=== PATIENT | male | born 1960 | race Caucasian/White ===

== ENCOUNTER → 2017-12-27 11:05 | Outpatient (CLI) | payer BC, SELFPAY ==
--- NOTE | 2017-12-27 11:13 | XR_ITS ---
XR chest 2V HISTORY: ITS.REASON: CHRONIC COUGH ORDERING PHYSICIAN: CHRISTINA Patiño PATIENT AGE: 57 years COMPARISON: None FINDINGS: The cardiomediastinal silhouette and pulmonary vascularity are within normal limits. The lungs are clear without infiltrates, suspicious nodules, or pleural effusions. 5 mm nodules present in the right lung base with a granuloma. No acute bony abnormalities. IMPRESSION: Negative chest, no acute finding
== END ==
PROVIDERS: PCP Physician Assistant; Visit Provider Physician Assistant
DX: R05 Cough (principal)
CPT/HCPCS: 71046

== ENCOUNTER → 2018-03-18 15:14 | Outpatient (POV) | payer BC, SELFPAY | PROVIDERS: Visit Provider Dermatology | DX: Z00.00 Encounter for general adult medical examination without abnormal findings (principal) ==

== ENCOUNTER → 2018-10-25 07:41 | Outpatient (CLI) | payer BC, SELFPAY ==
[2018-10-25 07:53] LABS: Basophils % 0.4 % (0.1-2.0); Eosinophils # 0.1 K/mm3 (0.0-0.4); Eosinophils % 2.5 % (0.1-12.0); Hematocrit 37.5 % (42.0-52.0); Hemoglobin 12.2 g/dL (14.1-18.0); Lymphocytes # 1.1 K/mm3 (0.7-4.5); Lymphocytes % 23.1 % (10-50); Mean Corpuscular HGB Conc 32.5 g/dL (31.8-35.4); Mean Corpuscular Hemoglobin 27.1 pg (27.0-31.2); Mean Corpuscular Volume 83.3 fl (80-94); Mean Platelet Volume 8.4 fl (7.4-10.4); Monocytes # 0.4 K/mm3 (0.1-1.0); Monocytes % 8.1 % (1.7-9.3); Neutrophils # 3.2 K/mm3 (1.8-7.8); Neutrophils % 65.9 % (37.0-80.0); Platelet Count 169 K/mm3 (142-424); Red Cell Distribution Width 13.2 % (11.5-17.5); White Blood Count 4.8 K/mm3 (4.8-10.8)
[2018-10-25 08:14] LABS: Alanine Aminotransferase 42 U/L (12-78); Albumin Level 3.7 gm/dL (3.4-5.0); Albumin/Globulin Ratio 1.3 (1.1-1.8); Alkaline Phosphatase 70 U/L (46-116); Anion Gap 12.3 mEq/L (5-15); Aspartate Amino Transferase 16 U/L (15-37); Bilirubin,Total 0.5 mg/dL (0.2-1.0); Blood Urea Nitrogen 21 mg/dL (7-18); CKMB Relative Index 1.6 U/L (0-4.0); Calcium 8.5 mg/dL (8.5-10.1); Carbon Dioxide 29 mmol/L (21.0-32.0); Chloride 107 mmol/L (98-107); Chol/HDL Ratio 3.5 (1-3.5); Cholesterol 135 mg/dL (140-200); Creatine Kinase 161 U/L (39-308); Creatine Kinase MB 2.5 ng/ml (0.0-3.6); Creatinine,Serum 1.13 mg/dL (0.70-1.30); Estimated Glomerular Filt Rate 67 ml/min (>60); GFR (African American) 81 ML/MIN (>60); Globulin 2.9 gm/dl (1.3-3.2); Glucose 95 mg/dL (74-106); HDL Cholesterol 39 mg/dL (27-67); LDL Cholesterol 85 mg/dL (0-130); Potassium 4.3 mmoL/L (3.5-5.1); Sodium 144 mmol/L (136-145); Total Protein,Serum 6.6 gm/dL (6.4-8.2); Triglycerides 54 mg/dL (30-200); Troponin I < 0.02 ng/ml (0.00-0.06); VLDL Cholesterol 11 mg/dL (0-40)
[2018-10-27 03:15] LABS: Vitamin B12 1879 pg/mL (232-1245)
[2018-10-29 06:23] LABS: Vitamin D 25 Hydroxy 39.5 ng/mL (30.0-100.0)
== END ==
PROVIDERS: Visit Provider Physician Assistant
DX: R07.9 Chest pain, unspecified (principal); R53.83 Other fatigue; Z13.220 Encounter for screening for lipoid disorders
CPT/HCPCS: 36415; 80053; 80061; 82550; 82553; 82607; 82652; 84443; 84484; 85025

== ENCOUNTER → 2018-10-31 13:14 | Outpatient (CLI) | payer BC, SELFPAY ==
[2018-10-31 13:33] LABS: Basophils % 0.5 % (0.1-2.0); Eosinophils # 0.1 K/mm3 (0.0-0.4); Eosinophils % 1.1 % (0.1-12.0); Hematocrit 38.3 % (42.0-52.0); Lymphocytes # 0.9 K/mm3 (0.7-4.5); Lymphocytes % 16.4 % (10-50); Mean Corpuscular HGB Conc 31.4 g/dL (31.8-35.4); Mean Corpuscular Hemoglobin 26.5 pg (27.0-31.2); Mean Corpuscular Volume 84.5 fl (80-94); Mean Platelet Volume 7.7 fl (7.4-10.4); Monocytes # 0.4 K/mm3 (0.1-1.0); Monocytes % 6.3 % (1.7-9.3); Neutrophils # 4.3 K/mm3 (1.8-7.8); Neutrophils % 75.7 % (37.0-80.0); Platelet Count 206 K/mm3 (142-424); Red Blood Count 4.54 M/mm3 (4.60-6.20); Red Cell Distribution Width 13.3 % (11.5-17.5); Reticulocyte % (Auto) 2.1 % (0.9-3.2); White Blood Count 5.7 K/mm3 (4.8-10.8)
--- NOTE | 2018-10-31 14:16 | US_ITS ---
US extremity LT limited HISTORY: ITS.REASON: LT ARM MASS ORDERING PHYSICIAN: CHRISTINA Patiño PATIENT AGE: 58 years COMPARISON: None FINDINGS: There is a small oval area of decreased echogenicity in the subcutaneous region in the left posterior forearm corresponding to the palpable abnormality. This area demonstrates hypervascular blood flow and may be related to either an ectatic vessel or a hemangioma. No other significant anomalies evident. IMPRESSION: Palpable abnormality corresponds to an area of increased blood flow and may be due to an ectatic vessel or hemangioma
[2018-10-31 15:04] LABS: Ferritin 14 ng/mL (8-388)
[2018-11-01 08:30] LABS: Iron 44 ug/dL (38-169); Iron Saturation 12 % (15-55); UIBC 310 ug/dL (111-343)
[2018-11-02 21:40] LABS: Folate >20.0 ng/mL (>3.0)
== END ==
PROVIDERS: PCP Physician Assistant; Visit Provider Physician Assistant
DX: R07.9 Chest pain, unspecified (principal); R22.32 Localized swelling, mass and lump, left upper limb; D64.9 Anemia, unspecified
CPT/HCPCS: 36415; 76882; 82728; 82746; 83540; 83550; 85025; 85044; 93017

== ENCOUNTER → 2018-11-18 14:19 | Outpatient (POV) | payer BC, SELFPAY | PROVIDERS: Visit Provider Dermatology | DX: Z00.00 Encounter for general adult medical examination without abnormal findings (principal) ==

== ENCOUNTER → 2019-03-31 15:35 | Outpatient (POV) | payer BC, SELFPAY ==
--- NOTE | 2019-03-31 16:25 | XR_ITS ---
PROCEDURE: XR FOOT WT BEARING LT 3V CLINICAL INDICATION: pain Left foot pain COMPARISON: No exams were available for comparison FINDINGS: Moderate osteoarthritic changes are present at the 1st MTP joint with bony hypertrophy. Normal alignment. No fracture or dislocation. No lytic or blastic change Other findings:None. IMPRESSION: Osteoarthritis of the 1st MTP joint Dictated by: Elias Lawson MD 03/31/2019 17:24 Electronically signed by Elias Lawson MD in [facility] 03/31/2019 17:24
--- NOTE | 2019-03-31 16:25 | XR_ITS ---
PROCEDURE: XR FOOT WT BEARING RT 3V CLINICAL INDICATION: pain COMPARISON: No exams were available for comparison FINDINGS: No fracture or dislocation. No lytic or blastic change. There is normal mineralization. There are mild osteoarthritic changes of the 1st MTP joint, talonavicular joint, and calcaneocuboid joint. Normal alignment with no fracture or dislocation. Prominent spur noted at the distal 1st metatarsal Other findings:None. IMPRESSION: Osteoarthritic change Dictated by: Elias Lawson MD 03/31/2019 17:23 Electronically signed by Elias Lawson MD in [facility] 03/31/2019 17:23
== END ==
PROVIDERS: Referring Provider Podiatrist; Visit Provider Dermatology
DX: M79.672 Pain in left foot (principal); M79.671 Pain in right foot
CPT/HCPCS: 73630

== ENCOUNTER → 2020-02-09 16:10 | Outpatient (CLI) | payer BC, SELFPAY ==
--- NOTE | 2020-02-09 16:17 | XR_ITS ---
PROCEDURE: XR CLAVICLE RT CLINICAL INDICATION: CLAVICLE PAIN COMPARISON: No exams were available for comparison FINDINGS: No fracture or dislocation. No lytic or blastic change. There is normal mineralization. There are mild osteoarthritic changes at the acromioclavicular joint. No fracture or dislocation. Minimal osteoarthritis noted at the glenohumeral joint. Other findings:None. IMPRESSION: Mild degenerative changes otherwise negative Dictated by: Elias Lawson MD 02/09/2020 16:52 Elias Lawson MD in [facility] 02/09/2020 16:52
== END ==
PROVIDERS: PCP Physician Assistant; Visit Provider Nurse Practitioner Family
DX: M89.8X1 Other specified disorders of bone, shoulder (principal)
CPT/HCPCS: 73000

== ENCOUNTER → 2020-02-29 16:10 | Outpatient (CLI) | payer BC, SELFPAY ==
[2020-03-01 07:02] LABS: Adenovirus,PCR Not Detected (NotDetected); Bordetella Pertussis Not Detected (NotDetected); Chlamydophila Pneumoniae, PCR Not Detected (NotDetected); Coronavirus 19, PCR Not Detected (NotDetected); Coronavirus 229E Not Detected (NotDetected); Coronavirus NL63 Not Detected (NotDetected); Coronavirus OC43 Not Detected (NotDetected); Coronovirus HKU1,PCR Not Detected (NotDetected); Human Metapneumovirus Not Detected (NotDetected); Influenza A, PCR Not Detected (NotDetected); Influenza AH1, 2009 Not Detected (NotDetected); Influenza AH1, PCR Not Detected (NotDetected); Influenza AH3,PCR Not Detected (NotDetected); Influenza B, PCR Not Detected (NotDetected); Mycoplasma Pneumoniae, PCR Not Detected (NotDetected); Parainfluenza 1, PCR Not Detected (NotDetected); Parainfluenza 2, PCR Not Detected (NotDetected); Parainfluenza 3, PCR Not Detected (NotDetected); Parainfluenza 4, PCR Not Detected (NotDetected); Respiratory Syncytial Virus Not Detected (NotDetected); Rhinovirus/Enterovirus Not Detected (NotDetected)
== END ==
PROVIDERS: PCP Family Medicine; Visit Provider Family Medicine
DX: Z03.818 Encounter for observation for suspected exposure to other biological agents ruled out (principal)
CPT/HCPCS: 87581; 87633; 87798; U0003; U0004

== ENCOUNTER → 2020-04-05 13:26 | Outpatient (POV) | payer BC, SELFPAY | PROVIDERS: Visit Provider Dermatology | DX: Z00.00 Encounter for general adult medical examination without abnormal findings (principal) ==

== ENCOUNTER → 2020-11-11 16:42 | Outpatient (CLI) | payer BC, SELFPAY ==
--- NOTE | 2020-11-11 16:49 | XR_ITS ---
PROCEDURE INFORMATION: Exam: XR Right Femur Exam date and time: 11/11/2020 4:49 PM Age: 60 years old Clinical indication: Pain; Hip; Right; Patient HX: PT C/O a dull ache to the entire RT leg without injury or trauma. PT states md is looking for arthritis; Additional info: RT leg pain TECHNIQUE: Imaging protocol: XR Right femur. Views: 2 views. COMPARISON: No relevant prior studies available. FINDINGS: Bones/joints: No acute fracture. Mild widening of the medial aspect of the joint space. No acute fracture. Satisfactory alignment. Minimal degenerative changes with small acetabular marginal osteophytes Soft tissues: No acute findings or radiopaque foreign body. IMPRESSION: 1. No acute osseous findings. 2. Minimal degenerative changes in the hip joint. 3. Mild widening of the medial hip joint space. If there is continued clinical concern for hip pathology, follow-up MRI or CT may be helpful.
--- NOTE | 2020-11-11 16:49 | XR_ITS ---
PROCEDURE INFORMATION: Exam: XR Right Knee Exam date and time: 11/11/2020 4:49 PM Age: 60 years old Clinical indication: Pain; Knee; Right; Patient HX: PT C/O a dull ache to the entire RT leg without injury or trauma. PT states md is looking for arthritis; Additional info: RT leg pain TECHNIQUE: Imaging protocol: XR Right knee. Views: 3 views. COMPARISON: CR XR FOOT WT BEARING RT 3V 03/31/2019 4:36 PM FINDINGS: Bones/joints: Small marginal osteophytes of the medial and lateral joint compartment. No significant joint effusion. No acute fracture, dislocation or osseous destructive process. Soft tissues: No acute finding or radiopaque foreign body. IMPRESSION: 1. Mild degenerative changes in the medial and lateral joint compartments. 2. No acute osseous findings.
--- NOTE | 2020-11-11 16:49 | XR_ITS ---
PROCEDURE INFORMATION: Exam: XR Right Tibia and Fibula Exam date and time: 11/11/2020 4:49 PM Age: 60 years old Clinical indication: Pain; Hip; Right; Patient HX: PT C/O a dull ache to the entire RT leg without injury or trauma. PT states md is looking for arthritis; Additional info: RT leg pain TECHNIQUE: Imaging protocol: XR Right tibia and fibula. Views: 2 views. COMPARISON: CR XR FOOT WT BEARING RT 3V 03/31/2019 4:36 PM FINDINGS: Bones/joints: No acute fracture, dislocation or osseous destructive process. Soft tissues: No acute finding or radiopaque foreign body. IMPRESSION: No acute findings.
== END ==
PROVIDERS: PCP Physician Assistant; Visit Provider Physician Assistant
DX: M79.604 Pain in right leg (principal)
CPT/HCPCS: 73552; 73562; 73590

== ENCOUNTER → 2020-11-18 18:24 | Outpatient (CLI) | payer BC, SELFPAY ==
--- NOTE | 2020-11-18 18:33 | XR_ITS ---
PROCEDURE INFORMATION: Exam: XR Left Hip Exam date and time: 11/18/2020 6:33 PM Age: 60 years old Clinical indication: Hip pain; Left hip; Patient HX: PT C/O pain below lt hip joint TECHNIQUE: Imaging protocol: XR Left hip. Views: 2 or 3 views hip with pelvis when performed. COMPARISON: CR XR LUMBAR SPINE 2-3V 06/26/2019 7:39 PM FINDINGS: Bones/joints: There is no evidence of acute fracture. There is no evidence of joint malalignment or dislocation. Mild degenerative changes of the left hip. Soft tissues: There are no soft tissue masses or fluid collections. Gastrointestinal tract: A large amount of stool is noted throughout the colon. IMPRESSION: 1. No evidence of acute fracture. 2. No evidence of acute dislocation. 3. Mild degenerative changes of the left hip. 4. A large amount of stool is noted throughout the colon.
== END ==
PROVIDERS: PCP Physician Assistant; Visit Provider Physician Assistant
DX: M25.552 Pain in left hip (principal)
CPT/HCPCS: 73502

== ENCOUNTER → 2020-12-01 15:26 | Outpatient (CLI) | payer BC, SELFPAY ==
--- NOTE | 2020-12-01 15:40 | CT_ITS ---
PROCEDURE: CT HIP RT WO CON CLINICAL HISTORY: RIGHT HIP PAIN COMPARISON: No exams were available for comparison TECHNIQUE: Axial images obtained with sagittal and coronal reformats. All CT scans at the facility use one or more dose reduction, viz: automated exposure control, ma/kV adjustment per patient size (including targeted exams where dose is matched to indication, i.e. head), or iterative reconstruction technique. FINDINGS: No evidence of acute fractures. Minor degenerative changes of the right hip joint noted with the osteophyte formation and subchondral cystic changes. Bone density is normal. The visualized iliac bone is unremarkable. Focal sclerotic density abutting the medial cortex is noted measuring 0.8 x 0.8 centimeters in the intertrochanteric region of the right femur without evidence of cortical breach. There is possible minor adjacent periosteal reaction. Degenerative changes with fusion of the inferior aspect of the right sacroiliac joint. Visualized soft tissues of the pelvis are unremarkable. IMPRESSION: Focal sclerotic density is noted in the intertrochanteric region of the right femur without evidence of cortical breach. Possible minor periosteal reaction. This is incompletely evaluated on the current study. MRI of the proximal right femur/right hip joint without and with contrast is recommended for further evaluation. Dictated by: Ariadna Brennan 12/01/2020 16:26 Ariadna Brennan in [facility] 12/01/2020 16:26
== END ==
PROVIDERS: PCP Physician Assistant; Visit Provider Physician Assistant
DX: M25.551 Pain in right hip (principal)
CPT/HCPCS: 73700

== ENCOUNTER → 2020-12-09 13:22 | Outpatient (CLI) | payer BC, SELFPAY ==
[2020-12-09 13:42] LABS: Blood Urea Nitrogen 16 mg/dl (9-20)
[2020-12-09 13:43] LABS: Estimated Glomerular Filt Rate 76 ml/min (>60); GFR (African American) 93 ML/MIN (>60)
--- NOTE | 2020-12-09 13:53 | MR_ITS ---
PROCEDURE: MR HIP RT WO/W CON CLINICAL INDICATION: RIGHT HIP LESION COMPARISON: CR XR HIP LT 2-3V W/PELVIS from 11/18/[address] HIP RT WO CON from 12/01/2020 TECHNIQUE: Routine multiplanar multi echo sequences are performed without and with gadolinium enhancement. FINDINGS: Radiograph and CT shows a cortical area of sclerosis in the intertrochanteric region of the right femur. This area shows decreased T1 and decreased T2 signal and does not demonstrate any contrast enhancement. These areas may represent bone islands. No evidence of avascular necrosis. No fracture or dislocation. No enhancing lesions apparent. There is some decrease in the hip joint spaces on both sides suggesting early osteoarthritic change. IMPRESSION: 1. The area of sclerosis of the right hip does not demonstrate any contrast enhancement and is isointense on T1 and T2 without edema or soft tissue lesion. These may represent bone islands. Three month follow-up radiograph suggested to confirm short term stability. 2. Minimal osteoarthritic change. Dictated by: Elias Lawson MD 12/12/2020 09:37 Elias Lawson MD in [facility] 12/12/2020 09:37
== END ==
PROVIDERS: PCP Physician Assistant; Visit Provider Physician Assistant
DX: M89.9 Disorder of bone, unspecified (principal)
CPT/HCPCS: 36415; 73723; 82565; 84520; A9576

== ENCOUNTER → 2020-12-22 16:59 | Outpatient (CLI) | payer BC, SELFPAY ==
[2020-12-22 18:12] LABS: Basophils # 0.1 K/mm3 (0-0.2); Basophils % 0.8 % (0.1-2.0); Eosinophils # 0.1 K/mm3 (0.0-0.4); Hematocrit 40.1 % (42.0-52.0); Hemoglobin 13.1 g/dL (14.1-18.0); Lymphocytes # 1.5 K/mm3 (0.7-4.5); Mean Corpuscular HGB Conc 32.8 g/dL (31.8-35.4); Mean Corpuscular Hemoglobin 25.3 pg (27.0-31.2); Mean Corpuscular Volume 77.1 fl (80-94); Mean Platelet Volume 7.9 fl (7.4-10.4); Monocytes # 0.4 K/mm3 (0.1-1.0); Monocytes % 7.1 % (1.7-9.3); Neutrophils # 3.5 K/mm3 (1.8-7.8); Platelet Count 196 K/mm3 (142-424); White Blood Count 5.6 K/mm3 (4.8-10.8)
[2020-12-22 19:00] LABS: Prostate Specific Ag Screen 0.7 ng/ml (0.0-4.0)
[2020-12-22 19:21] LABS: Iron 106 ug/dL (49-181)
== END ==
PROVIDERS: Visit Provider Physician Assistant
DX: D50.9 Iron deficiency anemia, unspecified (principal); Z12.5 Encounter for screening for malignant neoplasm of prostate
CPT/HCPCS: 36415; 83540; 85025; G0103

== ENCOUNTER → 2021-03-27 16:11 | Outpatient (CLI) | payer BC, SELFPAY ==
[2021-03-27 17:13] LABS: Basophils # 0.1 K/mm3 (0-0.2); Eosinophils # 0.1 K/mm3 (0.0-0.4); Eosinophils % 1.4 % (0.1-12.0); Hematocrit 46.4 % (42.0-52.0); Hemoglobin 15.4 g/dL (14.1-18.0); Lymphocytes # 1.5 K/mm3 (0.7-4.5); Mean Corpuscular HGB Conc 33.3 g/dL (31.8-35.4); Mean Corpuscular Hemoglobin 27.8 pg (27.0-31.2); Mean Corpuscular Volume 83.5 fl (80-94); Mean Platelet Volume 8.2 fl (7.4-10.4); Monocytes # 0.4 K/mm3 (0.1-1.0); Monocytes % 6.7 % (1.7-9.3); Neutrophils # 3.3 K/mm3 (1.8-7.8); Neutrophils % 62.8 % (37.0-80.0); Platelet Count 233 K/mm3 (142-424); Red Blood Count 5.55 M/mm3 (4.60-6.20); Red Cell Distribution Width 15.3 % (11.5-17.5); White Blood Count 5.3 K/mm3 (4.8-10.8)
[2021-03-27 17:33] LABS: Iron 136 ug/dL (49-181)
[2021-03-27 18:09] LABS: Ferritin 26.8 ng/ml (17.9-464)
== END ==
PROVIDERS: Visit Provider Physician Assistant
DX: E61.1 Iron deficiency (principal)
CPT/HCPCS: 36415; 82728; 83540; 85025

== ENCOUNTER → 2021-10-03 15:47 | Outpatient (POV) | payer BC, SELFPAY | PROVIDERS: Visit Provider Dermatology | DX: Z00.00 Encounter for general adult medical examination without abnormal findings (principal) ==

== ENCOUNTER → 2022-05-28 14:30 | Outpatient (CLI) | payer BC, SELFPAY ==
--- NOTE | 2022-05-28 | CA_ITS ---
APPROVED REPORT Exam: Exercise Treadmill Technologist: Martha Isbell Ht: 5 ft 10 in Wt: 185 lbs BSA: 2.02 m2 HR: 62 bpm BP: 150/88 mmHg Indications: Exertional chest pain, abnormal ekg Medical History Medications: LoraTidine,,,,, Stress Test Details Test: Justin HR Resting HR: 64 bpm Max Heart Rate (APMHR): 159.113966 bpm Max HR Achieved: 167 bpm Target HR (85% APMHR): 135.552528 bpm % of APMHR: 105.03 Recovery HR: 82 bpm BP Resting BP: 150.0/88.0 mmHg Max BP: 202.0/97.0 mmHg Recovery BP: 144.0/96.0 mmHg ECG Clinical Reason for Termination: Leg Pain Dyspnea Exercise duration: 13:09 min Highest Stage Achieved: Exercise capacity: 14.8 METs Stress ECG Conclusion Negative stress test. Patient exercised on a justin protocol for 13 minutes and 9 seconds to peak heart rate of 167 bpm (target heart rate 135 bpm) without chest pain, ST segment changes or arrhythmias. Total METS acheived 14.8 with peak blood pressure of 166/105 mmHg. No imaging ordered. Test Summary REST . . . . . . . Sitting REST . . . . . . . Standing REST 12:21 0.0 0.0 64 . 150/ 88 . . Stage 1 01:00 10.0 1.7 94 . . . . Stage 1 02:00 10.0 1.7 97 . . . . Stage 1 03:00 10.0 1.7 95 . 158/ 90 . . Stage 2 01:00 12.0 2.5 104 . . . . Stage 2 02:00 12.0 2.5 110 . . . . Stage 2 03:00 12.0 2.5 107 . 160/100 . . Stage 3 01:00 14.0 3.4 115 . . . . Stage 3 02:00 14.0 3.4 115 . . . . Stage 3 03:00 14.0 3.4 125 . 162/100 . . Stage 4 01:00 16.0 4.2 134 . . . . Stage 4 02:00 16.0 4.2 144 . . . . Stage 4 03:00 16.0 4.2 149 . 166/105 . . Stage 5 01:00 18.0 5.0 162 . . . . Stage 5 01:09 18.0 5.0 164 . . . Stop exercise at 13:09 RECOVERY 01:00 0.0 0.0 127 . 180/ 96 . . RECOVERY 02:00 0.0 0.0 104 . 180/ 96 . . RECOVERY 03:00 0.0 0.0 88 . 180/ 96 . . RECOVERY 04:00 0.0 0.0 86 . 200/ 99 . . RECOVERY 05:00 0.0 0.0 87 . 202/ 97 . . RECOVERY 06:00 0.0 0.0 82 . 202/ 97 . . RECOVERY 07:00 0.0 0.0 81 . 144/ 96 . . RECOVERY 08:00 0.0 0.0 0 . 144/ 96 . . RECOVERY 08:24 0.0 0.0 0 . 144/ 96 . . Electronically signed by : Jackson Horne MD 05/28/2022 21:38:59
== END ==
PROVIDERS: PCP Physician Assistant; Visit Provider Physician Assistant
DX: R07.89 Other chest pain (principal)
CPT/HCPCS: 93017

== ENCOUNTER 2022-10-04 17:54 | Emergency (ER) | payer BC, SELFPAY ==
[2022-10-04 17:55] VITALS: BP 146/104; PULSE 62; RESP 16; TEMP 36.7; O2SAT 98; BMI 24.8
--- NOTE | 2022-10-04 18:18 | XR_ITS ---
PROCEDURE INFORMATION: Exam: XR Right Hand Exam date and time: 10/04/2022 6:51 PM Age: 62 years old Clinical indication: Injury or trauma; Other: Crushing; Hand; Right; Additional info: Crush injury. Lac to 2nd digit TECHNIQUE: Imaging protocol: Radiologic exam of the right hand. Views: 3 or more views. COMPARISON: No relevant prior studies available. FINDINGS: Bones/joints: Moderate osteophytosis and degenerative changes involve the DIP and PIP joints, along with 1st and CP joint. Soft tissues: Moderate soft tissue swelling of the 2nd digit with subtle linear density dorsal to the DIP joint on lateral radiograph which may represent radiopaque foreign body versus minimally displaced avulsion fracture. IMPRESSION: Moderate soft tissue swelling of the 2nd digit with subtle linear density dorsal to the DIP joint on lateral radiograph which may represent radiopaque foreign body versus minimally displaced avulsion fracture.
--- NOTE | 2022-10-04 18:18 | XR_ITS ---
PROCEDURE INFORMATION: Exam: XR Right Forearm Exam date and time: 10/04/2022 6:55 PM Age: 62 years old Clinical indication: Injury or trauma; Other: Crush injury; Crushing; Radius and ulna; Right TECHNIQUE: Imaging protocol: Radiologic exam of the right forearm. Views: 2 views. COMPARISON: CR XR WRIST RT MIN 3V 10/04/2022 6:53 PM FINDINGS: Bones/joints: See Soft tissues finding. Soft tissues: Mild soft tissue swelling without acute osseous abnormality. IMPRESSION: Mild soft tissue swelling without acute osseous abnormality.
--- NOTE | 2022-10-04 18:18 | XR_ITS ---
PROCEDURE INFORMATION: Exam: XR Right Wrist Exam date and time: 10/04/2022 6:53 PM Age: 62 years old Clinical indication: Injury or trauma; Other: Crushing; Wrist; Right; Additional info: Crush injury TECHNIQUE: Imaging protocol: Radiologic exam of the right wrist. Views: 3 or more views. COMPARISON: CR XR HAND RT MIN 3V 10/04/2022 6:51 PM FINDINGS: Bones/joints: Normal. Soft tissues: Normal. IMPRESSION: No acute findings.
--- NOTE | 2022-10-04 18:19 | PC.NURSE ---
NACHO HOOD at
--- NOTE | 2022-10-04 18:20 | PC.NURSE ---
notified rad staff of xray orders
--- NOTE | 2022-10-04 18:56 | PC.NURSE ---
laceration repair per MD , 15 sutures placed.
--- NOTE | 2022-10-04 19:16 | HMH.EDGENADL ---
Discharge Plan Disposition Patient Disposition: Home, Self-Care Condition: Good Prescriptions Prescriptions: New hydrocodone-acetaminophen 7.5-325 mg tablet 1 tab PO Q8H PRN (Reason: pain) Qty: 10 0RF cephalexin 500 mg capsule 500 mg PO QID 5 Days Qty: 20 0RF No Action loratadine [Claritin] 10 mg tablet 10 mg PO ONCE diclofenac sodium 1 % gel 4 g TOPICAL QID PRN (Reason: pain ) 30 Days Qty: 100 2RF Rx Instructions: apply to single, ankle, foot; for foot includes sole/toes/top of foot methocarbamol 500 MG tablet 500 mg PO BIDP PRN (Reason: Muscle Spasm) Qty: 30 0RF ibuprofen 600 MG tablet 600 mg PO Q6HP PRN (Reason: Mild Pain) Qty: 30 0RF Referrals Follow up/Referrals: Diann Mark PA [Primary Care Provider] - See instructions Clinical Impressions Clinical Impression: Laceration Instructions Patient Instructions: DI for Laceration Repair Print Language Print Language: [place] Discharge ED Provider: Sha Krueger General Adult HPI General Chief complaint: Wound/Laceration Stated complaint: AO 10/04@1730@home lac to R Hand Finger Time Seen by Provider: 10/04/22 19:45 Mode of Arrival: Ambulatory Source of Information: Patient Limitations: No Limitations Description of Symptoms (Recalled from ER Triage Doc. by RN): laceration from crush type of injury to R index finger. No active bleeding at this time. Pt reports tailgate of dump truck smashed down on his hand. Pt also reports in his wrist and middle finger of R hand. History of Present Illness HPI narrative: Patient presents to the emergency department the laceration to his right index finger. The patient sustained this just prior to arrival and had his hand crushed in the tailgate of a dump truck. The patient denies any numbness or tingling in the index finger. States his last tetanus shot was greater than 8 years ago. Describes some pain in his long finger. States that it is somewhat painful to move his wrist. Related Data Home Medications Medication Instructions Recorded Confirmed loratadine 10 mg tablet (Claritin) 10 mg PO ONCE 11/15/17 04/23/19 Previous Rx's Medication Instructions Recorded diclofenac sodium 1 % topical gel 4 g topical QID PRN pain 30 days 04/23/19 #100 grams ibuprofen 600 mg tablet 600 mg PO Q6HP PRN Mild Pain #30 06/26/19 tabs methocarbamol 500 mg tablet 500 mg PO BIDP PRN Muscle Spasm 06/26/19 #30 tabs cephalexin 500 mg capsule 500 mg PO QID 5 days #20 caps 10/04/22 hydrocodone 7.5 mg-acetaminophen 1 tab PO Q8H PRN pain #10 tabs 10/04/22 325 mg tablet Allergies Allergy/AdvReac Type Severity Reaction Status Date / Time Sulfa (Sulfonamide Allergy Mild Verified 04/23/19 14:43 Antibiotics) [SULFA (SULFONAMIDE ANTIBIOTICS)] [facility] Disclaimer: The information contained in this section may have been updated after the patient was seen, as this information can be updated by other users. Social History Smoking Status: Unknown if ever smoked alcohol intake: never counseling provided: none substance use type: denies use current occupational status: other Travel in the last 8 weeks: None household members: spouse ROS Obtained: Yes All systems reviewed & no additional complaints except as documented Musculoskeletal Musculoskeletal: Reports other (Finger laceration, injury) Physical Exam General General appearance: alert and in no apparent distress Head Head exam: atraumatic and normocephalic Eye Eye exam: Present normal appearance, PERRL and EOMI Respiratory Respiratory exam: Present normal lung sounds bilaterally Cardiovascular Cardiovascular exam: Present regular rate, normal rhythm and normal heart sounds Abdominal Exam Abdominal exam: Present normal bowel sounds Extremities Exam Extremities exam: Present other (Large laceration noted to the left index finger, approximately 8 cm. Irregularly shaped. Flap noted.
[2022-10-04 19:58] VITALS: BP 132/84; PULSE 84; RESP 20; TEMP 36.6
== END 2022-10-04 20:01 | disposition home or self-care (01) ==
PROVIDERS: Emergency Provider Emergency Medicine; PCP Physician Assistant
DX: S61.210A Laceration without foreign body of right index finger without damage to nail, initial encounter (principal); S67.21XA Crushing injury of right hand, initial encounter; W23.1XXA Caught, crushed, jammed, or pinched between stationary objects, initial encounter; Z23 Encounter for immunization
CPT/HCPCS: 12044; 73090; 73110; 73130; 90715; 96365; 96372; 99284

== ENCOUNTER 2022-10-13 09:57 | Emergency (ER) | payer BC, SELFPAY ==
[2022-10-13 09:58] VITALS: BP 161/97; PULSE 63; RESP 18; TEMP 36.6; O2SAT 100; BMI 25.1
--- NOTE | 2022-10-13 10:44 | EXP.UTC ---
Discharge Plan Disposition Patient Disposition: Home, Self-Care Condition: Good Prescriptions Prescriptions: New cephalexin 500 mg capsule 500 mg PO QID Qty: 40 0RF No Action loratadine [Claritin] 10 mg tablet 10 mg PO ONCE diclofenac sodium 1 % gel 4 g TOPICAL QID PRN (Reason: pain ) 30 Days Qty: 100 2RF Rx Instructions: apply to single, ankle, foot; for foot includes sole/toes/top of foot methocarbamol 500 MG tablet 500 mg PO BIDP PRN (Reason: Muscle Spasm) Qty: 30 0RF ibuprofen 600 MG tablet 600 mg PO Q6HP PRN (Reason: Mild Pain) Qty: 30 0RF hydrocodone-acetaminophen 7.5-325 mg tablet 1 tab PO Q8H PRN (Reason: pain) Qty: 10 0RF cephalexin 500 mg capsule 500 mg PO QID 5 Days Qty: 20 0RF Referrals Follow up/Referrals: Diann Mark PA [Primary Care Provider] - See instructions Activity Restrictions/Add. Instructions Additional Instructions/Restrictions: Keep the wound clean and dry. Watch the wound for signs of infection, such as redness, swelling, drainage, fever. etc. Take the antibiotics as directed. Follow up with your regular doctor. Return in 2 days for a recheck. GO TO THE ER FOR ANY WORSENING SYMPTOMS OR CONCERNS. Clinical Impressions Clinical Impression: Laceration of right index finger, Wound infection Instructions Patient Instructions: Trimethoprim/Sulfamethoxazole (Alternative Therapy), DI for Wound Infection, Cephalexin Discharge ED Provider: Enoch Pettit [facility] General Stated complaint: Suture Removal Mode of Arrival: Ambulatory Source of Information: Patient Limitations: No Limitations Time Seen by Provider: 10/13/22 10:44 HEENT Symptoms (Recalled from RN notes): No Resp Symptoms (Recalled from RN notes): No Skin Symptoms (Recalled from RN notes): Yes MS Symptoms (Recalled from RN notes): No Functional Status (Recalled from RN notes): wnl History of Present Illness Provider Complaint: Patient is he is here to have his sutures checked and possibly have them removed. He states that wound is red around it and he has had swelling and discharge. He stopped taking the prescribed cephalexin on day 5 (of 10). Related Data Home Medications Medication Instructions Recorded Confirmed loratadine 10 mg tablet (Claritin) 10 mg PO ONCE 11/15/17 04/23/19 Previous Rx's Medication Instructions Recorded diclofenac sodium 1 % topical gel 4 g topical QID PRN pain 30 days 04/23/19 #100 grams ibuprofen 600 mg tablet 600 mg PO Q6HP PRN Mild Pain #30 06/26/19 tabs methocarbamol 500 mg tablet 500 mg PO BIDP PRN Muscle Spasm 06/26/19 #30 tabs cephalexin 500 mg capsule 500 mg PO QID 5 days #20 caps 10/04/22 hydrocodone 7.5 mg-acetaminophen 1 tab PO Q8H PRN pain #10 tabs 10/04/22 325 mg tablet cephalexin 500 mg capsule 500 mg PO QID #40 caps 10/13/22 Allergies Allergy/AdvReac Type Severity Reaction Status Date / Time Sulfa (Sulfonamide Allergy Mild Verified 04/23/19 14:43 Antibiotics) [SULFA (SULFONAMIDE ANTIBIOTICS)] Worker's Comp Is this a Worker's Comp case?: No [facility] Disclaimer: The information contained in this section may have been updated after the patient was seen, as this information can be updated by other users. Social History Smoking Status: Unknown if ever smoked alcohol intake: never counseling provided: none substance use type: denies use current occupational status: other Travel in the last 8 weeks: None household members: spouse ROS Obtained: Yes All systems reviewed & no additional complaints except as documented Constitutional Constitutional: Denies chills and Denies fever(s) Eyes Eyes: Denies eye discharge ENT Ears, Nose, Mouth, and Throat: Denies dizziness, Denies otalgia and Denies sore throat Cardiovascular Cardiovascular: Denies chest pain Respiratory Respiratory: Denies shortness of breath, Denies
[2022-10-13 11:11] VITALS: BP 161/97; PULSE 63; RESP 18; TEMP 36.6; O2SAT 100
== END 2022-10-13 11:12 | disposition home or self-care (01) ==
PROVIDERS: Emergency Provider Nurse Practitioner Family; PCP Physician Assistant
DX: S61.210A Laceration without foreign body of right index finger without damage to nail, initial encounter (principal); L08.9 Local infection of the skin and subcutaneous tissue, unspecified; W23.0XXA Caught, crushed, jammed, or pinched between moving objects, initial encounter
CPT/HCPCS: 99204; 99212; G0463

== ENCOUNTER → 2022-10-26 11:05 | Outpatient (CLI) | payer BC, SELFPAY ==
--- NOTE | 2022-10-26 11:10 | XR_ITS ---
FINAL REPORT CLINICAL HISTORY: RT FINGER INJURY COMPARISON: Report dated 10/04/2022 FINDINGS: Right hand Four views were obtained. There is no acute fracture or dislocation. Mild and moderate degenerative changes are present. There is a cyst in the scaphoid. The 2nd and 3rd digits are overlapped on the lateral view. The questioned abnormality on the prior report is not seen on today's exam. No soft tissue abnormality is identified. IMPRESSION: Degenerative changes as above. Reviewed, Interpreted and Dictated by Modesto Rendon III, MD Transcribed by Sandra Cárdenas Authenticated and [facility]
== END ==
PROVIDERS: PCP Physician Assistant; Visit Provider Physician Assistant
DX: M79.641 Pain in right hand (principal); S69.91XA Unspecified injury of right wrist, hand and finger(s), initial encounter; S62.300A Unspecified fracture of second metacarpal bone, right hand, initial encounter for closed fracture
CPT/HCPCS: 73130

== ENCOUNTER → 2022-11-22 10:32 | Outpatient (CLI) | payer BC, SELFPAY ==
--- NOTE | 2022-11-22 10:40 | XR_ITS ---
FINAL REPORT CLINICAL HISTORY: RT KNEE INJURY, PAIN & SWELLING IN MEDIAL SIDE OF RT KNEE COMPARISON: 11/11/2020 FINDINGS: RIGHT KNEE SERIES Three views of the right knee were obtained. There is no acute fracture or dislocation. There is mild degenerative change of the medial compartment. There is no soft tissue abnormality. IMPRESSION: Mild degenerative change of the medial compartment. Reviewed, Interpreted and Dictated by Modesto Rendon III, MD Transcribed by Abelardo Anderson Authenticated and [facility]
== END ==
PROVIDERS: PCP Physician Assistant; Visit Provider Physician Assistant
DX: M25.561 Pain in right knee (principal); S89.91XA Unspecified injury of right lower leg, initial encounter
CPT/HCPCS: 73562

== ENCOUNTER → 2022-12-04 08:22 | Outpatient (POV) | payer BC, SELFPAY | PROVIDERS: Visit Provider Dermatology | DX: Z00.00 Encounter for general adult medical examination without abnormal findings (principal) ==

== ENCOUNTER → 2022-12-20 14:09 | Outpatient (CLI) | payer BC, SELFPAY ==
--- NOTE | 2022-12-20 14:09 | MR_ITS ---
FINAL REPORT CLINICAL HISTORY: knee pain medial sided knee pain FINDINGS: Multiplanar MR imaging of the right knee was performed without contrast. There is a tear of the posterior horn of the medial meniscus. The lateral meniscus is intact. The anterior and posterior cruciate ligaments are intact. The medial collateral ligament and lateral ligamentous complex are intact. The patellar and quadriceps tendons are intact. There is no evidence of fracture. There is mild to moderate medial compartment chondromalacia. Small joint effusion is seen. The musculature is intact. No soft tissue mass or cyst is identified. IMPRESSION: Tear posterior horn medial meniscus. Medial compartment chondromalacia. Reviewed, Interpreted and Dictated by Modesto Rendon III, MD Transcribed by Sandra Cárdenas Authenticated and . [facility]
== END ==
PROVIDERS: PCP Physician Assistant; Visit Provider Orthopaedic Surgery
DX: M25.561 Pain in right knee (principal)
CPT/HCPCS: 73721

== ENCOUNTER 2023-06-05 13:19 | Outpatient (CLI) | payer BC, SELFPAY ==
--- NOTE | 2023-06-05 13:24 | XR_ITS ---
FINAL REPORT CLINICAL HISTORY: CHEST WALL PAIN FINDINGS: TWO-VIEW CHEST The heart size is normal. The mediastinum is normal. The lungs are clear. There is no pneumothorax. IMPRESSION: No acute cardiopulmonary process. Reviewed, Interpreted and Dictated by Say Carr MD Transcribed by Sandra Cárdenas Authenticated and [facility]
== END 2023-06-05 23:59 ==
LOC: RAD 13:21
PROVIDERS: PCP Physician Assistant; Visit Provider Physician Assistant
DX: R07.89 Other chest pain (principal)
CPT/HCPCS: 71046

== ENCOUNTER 2023-06-14 14:11 | Outpatient (CLI) | payer BC, SELFPAY ==
--- NOTE | 2023-06-14 14:14 | CT_ITS ---
FINAL REPORT CLINICAL HISTORY: H/O TOBACCO USE former smoker, quit 14 years ago 1 PPD x30 years hx of nodule right lung base FINDINGS: CT CHEST LOW DOSE SCREENING HISTORY: Screening exam for lung cancer. Former smoker, 30 pack year smoking history DOSE: CTDIvol: 2.90 mGy, DLP: 105.51 mGy*cm COMPARISON: None . TECHNIQUE: Axial CT without IV contrast administration using low dose protocol FINDINGS: No acute lung disease is present . No pulmonary lesions are seen suspicious for neoplasm. No pleural or pericardial effusion is seen . No adenopathy or mass lesion is present . IMPRESSION: 1. No evidence of lung cancer LUNG RADS CATEGORY 1 RECOMMENDATION: 12 month LDCT follow up Authenticated and [facility]
== END 2023-06-14 23:59 ==
LOC: RAD 14:11
PROVIDERS: PCP Physician Assistant; Visit Provider Physician Assistant
DX: Z87.891 Personal history of nicotine dependence (principal)
CPT/HCPCS: 71271

== ENCOUNTER 2023-09-12 09:49 | Outpatient (CLI) | payer BC, SELFPAY ==
--- NOTE | 2023-09-12 09:54 | XR_ITS ---
FINAL REPORT CLINICAL HISTORY: LT LEG PAIN COMPARISON: None FINDINGS: 4 images of the left tibia and fibula were obtained. There is no evidence of fracture or dislocation. The joint spaces are intact. There is no soft tissue abnormality identified. IMPRESSION: No acute bony abnormality. Reviewed, Interpreted and Dictated by Celine Andrea MD Transcribed by Shae Guerra Authenticated and [facility]
--- NOTE | 2023-09-12 09:54 | XR_ITS ---
FINAL REPORT CLINICAL HISTORY: LT LEG PAIN COMPARISON: None FINDINGS: LEFT ANKLE: Three views show no evidence of acute displaced fracture or dislocation of the visualized bony architecture. The joint spaces appear normal. IMPRESSION: Unremarkable exam. Reviewed, Interpreted and Dictated by Celine Andrea MD Transcribed by Shae Guerra Authenticated and [facility]
== END 2023-09-12 23:59 | disposition home or self-care (01) ==
LOC: RAD 09:51
PROVIDERS: PCP Physician Assistant; Visit Provider Physician Assistant
DX: M79.605 Pain in left leg (principal)
CPT/HCPCS: 73590; 73610

== ENCOUNTER 2023-12-10 10:35 | Outpatient (POV) | payer BC, SELFPAY | END 2023-12-10 23:59 | disposition home or self-care (01) | LOC: SC 10:35 | PROVIDERS: PCP Physician Assistant; Visit Provider Dermatology | DX: Z00.00 Encounter for general adult medical examination without abnormal findings (principal) ==

== ENCOUNTER 2024-05-31 14:06 | Emergency (ER) | payer BC, SELFPAY ==
--- NOTE | 2024-05-31 14:10 | XR_ITS ---
PROCEDURE INFORMATION: Exam: XR Pelvis Exam date and time: 05/31/2024 2:20 PM Age: 64 years old Clinical indication: Injury or trauma; Fall; Blunt trauma (contusions or hematomas); Bilateral; Pelvic region TECHNIQUE: Imaging protocol: Radiologic exam of the pelvis. Views: 3 or more views. COMPARISON: CR XR HIP LT 2-3V W/PELVIS 11/18/2020 6:26 PM FINDINGS: Bones/joints: There is no evidence of acute fracture.There is no evidence of malalignment or dislocation. Degenerative changes in both hips and sacroiliac joints Soft tissues: Unremarkable. IMPRESSION: There is no evidence of acute fracture.There is no evidence of malalignment or dislocation.
[2024-05-31 14:30] VITALS: BP 124/76; PULSE 71; RESP 19; TEMP 36.8; O2SAT 98; BMI 26.1
--- NOTE | 2024-05-31 14:56 | EXP.UTC ---
Discharge Plan Disposition Patient Disposition: Home, Self-Care Condition: Good Prescriptions Prescriptions: New ibuprofen 800 mg tablet 800 mg PO Q8H PRN (Reason: pain) Qty: 30 0RF Referrals Follow up/Referrals: Diann Mark PA [Primary Care Provider] - See instructions Activity Restrictions/Add. Instructions Additional Instructions/Restrictions: Take Ibuprofen/Tylenol as needed for pain. Heat/Ice as needed. If symptoms persist or worsen, return to clinic/PCP. Clinical Impressions Clinical Impression: Arthralgia of left side of pelvis Instructions Patient Instructions: DI for Pelvic Pain Print Language Print Language: Togolese Discharge ED Provider: Della Carlos [facility] [place] HPI General Stated complaint: AO fall 05/31 @0600, lower back/hip pain Mode of Arrival: Ambulatory Source of Information: Patient Limitations: No Limitations Time Seen by Provider: 05/31/24 14:43 Description of Symptoms (Recalled from Triage Doc. by RN): PATIENT C/O PELVIC PAIN AFTER FALLING TODAY HEENT Symptoms (Recalled from RN notes): No Resp Symptoms (Recalled from RN notes): No Skin Symptoms (Recalled from RN notes): No MS Symptoms (Recalled from RN notes): Yes Functional Status (Recalled from RN notes): WNL History of Present Illness Provider Complaint: Pt reports that he was climbing the fence and slipped on the 3 rung and landed with the fence hitting the left inner pelvic area. Pt states that he feels some pain with walking and makes him limp. Related Data Previous Rx's ?Medication ?Instructions ?Recorded ibuprofen 800 mg tablet 800 mg PO Q8H PRN pain #30 tabs 05/31/24 Allergies Allergy/AdvReac Type Severity Reaction Status Date / Time Sulfa (Sulfonamide Allergy Mild Verified 12/12/22 09:50 Antibiotics) (SULFA (SULFONAMIDE ANTIBIOTICS)) Worker's Comp Is this a Worker's Comp case?: No [facility] Disclaimer: The information contained in this section may have been updated after the patient was seen, as this information can be updated by other users. Medical History (Updated 05/31/24 @ 15:39 by Della Carlos APRN) History of anemia Social History Smoking Status: Unknown if ever smoked alcohol intake: never counseling provided: none substance use type: denies use current occupational status: other Travel in the last 8 weeks: None household members: spouse Have you lived/traveled outside US in past 30 days?: No Contact w/someone who lives/traveled outside US past 30 days?: No Exposure to someone with infectious disease in past 14 days?: No Do you have a fever (greater than 100.4 F or 38 C)?: No Have you tested positive for COVID-19: No Exposed to someone with COVID-19 in past 14 days?: No Do you have a sore throat?: No Do you have a cough?: No Do you have any weakness?: No Do you have any diarrhea?: No Are you experiencing any unusual bleeding?: No Do you have any muscle aches/pain?: No Do you have any abdominal pain?: No Are you experiencing loss of taste or smell?: No ROS Obtained: Yes All systems reviewed & no additional complaints except as documented Constitutional Constitutional: Reports system reviewed and no additional complaints, except as documented Eyes Eyes: Reports system reviewed and no additional complaints, except as documented ENT Ears, Nose, Mouth, and Throat: Reports system reviewed and no additional complaints, except as documented Cardiovascular Cardiovascular: Reports system reviewed and no additional complaints, except as documented Respiratory Respiratory: Reports system reviewed and no additional complaints, except as documented Gastrointestinal Gastrointestingal: Reports system reviewed and no additional complaints, except as documented Genitourinary Male Genitourinary: Reports system reviewed and no additional complaints, except as documented Musculoskeletal Musculoskeletal: Reports system reviewed and no additional complaints, except as documented, Reports abnormal gait, Reports arthralgias and Reports stiffness Integumentary/Breasts Skin/Breast: Reports system reviewed and no additional complaints, except as documented Neurologic Neurologic: Reports system reviewed and no additional complaints, except as documented and Reports abnormal gait Endocrine Endocrine: Reports system reviewed and no additional complaints, except as documented Hematologic/Lymphatic Henatologic/Lymphatic: Reports system reviewed and no additional complaints, except as documented Allergic/Immunologic Allergic/Immunologic: Reports system reviewed and no additional complaints, except as documented Physical Exam General General appearance: alert and in no apparent distress Head Head exam: atraumatic and normocephalic Eye Eye exam: Present normal appearance ENT ENT exam: Present normal exam Neck Neck exam: Present normal inspection Chest Chest inspection: Present normal inspection and symmetric chest wall rise Respiratory Respiratory exam: Present normal lung sounds bilaterally Cardiovascular Cardiovascular exam: Present regular rate, normal rhythm and normal heart sounds Abdominal Exam Abdominal exam: Present soft Extremities Exam Extremities exam: Present tenderness Expanded Lower Extremity Exam Left: Hip/Pelvis exam: Present full ROM, tenderness, pelvis stable, external rotation, internal rotation and hip pain on leg movement; Absent shortening of leg Upper leg exam: Present normal inspection Knee exam: Present normal inspection Lower leg exam: Present normal inspection Ankle exam: Present normal inspection Foot/toe exam: Present normal inspection Neurovascular/Tendon exam: Present normal capillary refill Gait: observed and limited by pain Back Exam Back exam: Present normal inspection Neurological Exam Neurological exam: Present alert and oriented X3 Psychiatric Psychiatric exam: Present normal affect and normal mood Skin Skin exam: Present warm, dry and intact Lymphatic Lymphatic Findings: no adenopathy Medical Decision Making Medical Records Screening: Per USPSTF and CDC recommendations, given the prevalence of disease in our region, it is our hospital?s policy to screen for HIV and viral Hepatitis for all patients aged 18 and over and those with ongoing risk factors. Eron Inquiry Pt receiving controlled substance: No Eron was queried for this patient: No Vital Signs: 05/31/24 14:30 Temperature 98.3 F Temperature Source Oral Pulse Rate [Left Brachial] 71 Respiratory Rate 19 Blood Pressure [Left Arm] 124/76 Blood Pressure Mean [Left Arm] 92 Blood Pressure Source [Left Arm] Automatic Cuff Blood Pressure Position [Left Arm] Sitting 02 Sat by Pulse Oximetry 98 Oxygen Delivery Method Room Air Orders (Tests/Meds): ORDERS Category Date Time Status XR pelvis min 3V Stat Exams 05/31/24 14:10 Taken Radiology Data #1: Image(s): Pelvis Image Reviewed: Yes I reviewed the patient's radiology results and Yes I have reviewed radiologist's interpretation FINDINGS: Bones/joints: There is no evidence of acute fracture.There is no evidence of malalignment or dislocation. Degenerative changes in both hips and sacroiliac joints Soft tissues: Unremarkable. IMPRESSION: There is no evidence of acute fracture.There is no evidence of malalignment or dislocation.
[2024-05-31 15:40] VITALS: BP 124/76; PULSE 71; RESP 19; TEMP 36.8; O2SAT 98
== END 2024-05-31 15:43 | disposition home or self-care (01) ==
PROVIDERS: Emergency Provider Nurse Practitioner Family; PCP Physician Assistant
DX: M25.552 Pain in left hip (principal); R26.89 Other abnormalities of gait and mobility
CPT/HCPCS: 72190; 99212; G0381

== ENCOUNTER 2024-06-07 08:23 | Emergency (ER) | payer BC, SELFPAY ==
[2024-06-07 08:36] VITALS: BP 132/76; PULSE 87; RESP 16; TEMP 37.6; O2SAT 99; BMI 26.2
[2024-06-07 08:51] LABS: UTC Strep Screen (Rapid) Negative (Negative)
[2024-06-07 08:52] LABS: UTC Influenza A Antigen Negative (Negative); UTC Influenza B Antigen Negative (Negative)
--- NOTE | 2024-06-07 09:21 | ED_ITS ---
Discharge Plan Disposition Patient Disposition: Home, Self-Care Condition: Good Prescriptions Prescriptions: New Stahist AD 25-60 mg tablet 1 tab PO .6-8 hours MDD 3 tabs PRN (Reason: sinus symptoms) Qty: 30 0RF cefdinir 300 mg capsule 300 mg PO BID 10 Days Qty: 20 0RF Referrals Follow up/Referrals: Diann Mark PA [Primary Care Provider] - See instructions Activity Restrictions/Add. Instructions Additional Instructions/Restrictions: Take medication as prescribed. Use 2 drops of mineral oils in ears twice a day for 4 days then take a warm shower and let the warm water wash out wax. If symptoms persist or worsen, return to clinic/PCP. Clinical Impressions Clinical Impression: Bilateral impacted cerumen Sinusitis Qualifiers: Sinusitis location: ethmoidal Chronicity: acute Recurrence: non-recurrent Qualified Code(s): J01.20 - Acute ethmoidal sinusitis, unspecified Instructions Patient Instructions: DI for Sinusitis, DI for Cerumen Impaction Print Language Print Language: [place] Zealander Discharge ED Provider: Della Carlos [facility] [place] General Stated complaint: congestion, sore throat, ear pain Mode of Arrival: Ambulatory Source of Information: Patient Time Seen by Provider: 06/07/24 09:11 Description of Symptoms (Recalled from Triage Doc. by RN): SORE THROAT, COUGH, CONGESTION, PAREKH, CHILLS ON AND OFF [facility] Symptoms (Recalled from RN notes): Yes Resp Symptoms (Recalled from RN notes): Yes Skin Symptoms (Recalled from RN notes): No MS Symptoms (Recalled from RN notes): No Functional Status (Recalled from RN notes): WNL History of Present Illness Provider Complaint: Pt reports that he has had symptoms of sinus congestion, yellow/green sinus drainage, ear pain, and cough that has worsened over the last 3 days. He reports that he has had similar symptoms since . Related Data Previous Rx's ?Medication ?Instructions ?Recorded cefdinir 300 mg capsule 300 mg PO BID 10 days #20 caps 06/07/24 chlorcyclizine-pseudoephedrine 25 1 tab PO .6-8 hours PRN sinus 06/07/24 mg-60 mg tablet (Stahist AD) symptoms #30 tabs Allergies Allergy/AdvReac Type Severity Reaction Status Date / Time Sulfa (Sulfonamide Allergy Mild Verified 12/12/22 09:50 Antibiotics) (SULFA (SULFONAMIDE ANTIBIOTICS)) Worker's Comp Is this a Worker's Comp case?: No [facility] Disclaimer: The information contained in this section may have been updated after the patient was seen, as this information can be updated by other users. Medical History (Updated 06/07/24 @ 09:27 by Della Carlos APRN) History of anemia Social History Smoking Status: Unknown if ever smoked alcohol intake: never counseling provided: none substance use type: denies use current occupational status: other Travel in the last 8 weeks: None household members: spouse Have you lived/traveled outside US in past 30 days?: No Contact w/someone who lives/traveled outside US past 30 days?: No Exposure to someone with infectious disease in past 14 days?: No Do you have a fever (greater than 100.4 F or 38 C)?: No Have you tested positive for COVID-19: No Exposed to someone with COVID-19 in past 14 days?: No Do you have a sore throat?: Yes Do you have a cough?: No Do you have any weakness?: No Do you have any diarrhea?: No Are you experiencing any unusual bleeding?: No Do you have any muscle aches/pain?: No Do you have any abdominal pain?: No Are you experiencing loss of taste or smell?: No ROS Obtained: Yes All systems reviewed & no additional complaints except as documented Constitutional Constitutional: Reports system reviewed and no additional complaints, except as documented, Reports body ache, Reports chills and Reports headache(s) Eyes Eyes: Reports system reviewed and no additional complaints, except as documented ENT Ears, Nose, Mouth, and Throat: Reports system reviewed and no additional complaints, except as documented, Reports otalgia, Reports headache(s), Reports nasal congestion, Reports nasal discharge, Reports sinus pain, Reports sinus pressure and Reports sore throat Cardiovascular Cardiovascular: Reports system reviewed and no additional complaints, except as documented Respiratory Respiratory: Reports system reviewed and no additional complaints, except as documented and Reports non-productive cough Gastrointestinal Gastrointestingal: Reports system reviewed and no additional complaints, except as documented Genitourinary Male Genitourinary: Reports system reviewed and no additional complaints, except as documented Musculoskeletal Musculoskeletal: Reports system reviewed and no additional complaints, except as documented Integumentary/Breasts Skin/Breast: Reports system reviewed and no additional complaints, except as documented Neurologic Neurologic: Reports system reviewed and no additional complaints, except as documented and Reports headache(s) Endocrine Endocrine: Reports system reviewed and no additional complaints, except as documented Hematologic/Lymphatic Henatologic/Lymphatic: Reports system reviewed and no additional complaints, except as documented Allergic/Immunologic Allergic/Immunologic: Reports system reviewed and no additional complaints, except as documented Physical Exam General General appearance: alert Comment: ill appearing Head Head exam: atraumatic and normocephalic Eye Eye exam: Present periorbital swelling Expanded ENT Exam External ear exam: Present normal external inspection TM/Canal exam: Bilateral TM: cerumen impaction Nose exam: Present sinus tenderness Nasal speculum exam: Bilateral: purulent discharge Mouth exam: Present normal external inspection Teeth exam: Present normal inspection Throat exam: Present tonsillar erythema Neck Neck exam: Present normal inspection; Absent lymphadenopathy Chest Chest inspection: Present normal inspection and symmetric chest wall rise Respiratory Respiratory exam: Present normal lung sounds bilaterally Cardiovascular Cardiovascular exam: Present regular rate and normal rhythm Abdominal Exam Abdominal exam: Present soft and normal bowel sounds Extremities Exam Extremities exam: Present normal inspection Back Exam Back exam: Present normal inspection Neurological Exam Neurological exam: Present alert and oriented X3 Psychiatric Psychiatric exam: Present normal affect and normal mood Skin Skin exam: Present warm, dry and intact Lymphatic Lymphatic Findings: no adenopathy Medical Decision Making Medical Records Screening: Per USPSTF and CDC recommendations, given the prevalence of disease in our region, it is our hospital?s policy to screen for HIV and viral Hepatitis for all patients aged 18 and over and those with ongoing risk factors. Eron Inquiry Pt receiving controlled substance: No Eron was queried for this patient: No Vital Signs: 06/07/24 08:36 Temperature 99.7 F H Temperature Source Oral Pulse Rate [Left Radial] 87 Respiratory Rate 16 Blood Pressure [Left Arm] 132/76 Blood Pressure Mean [Left Arm] 94 02 Sat by Pulse Oximetry 99 Lab Data Lab results reviewed: Yes I reviewed the patient's lab results. Lab Results 06/07/24 08:36: Influenza Type A Ag Negative, Influenza Type B Ag Negative, Strep Scn Rapid Clinic Negative Orders (Tests/Meds): ORDERS Category Date Time Status Strep Screen Confirmation Stat Micro 06/07/24 08:36 Received
[2024-06-07 09:27] VITALS: BP 132/76; PULSE 87; RESP 16; TEMP 37.6
== END 2024-06-07 09:31 | disposition home or self-care (01) ==
PROVIDERS: Emergency Provider Nurse Practitioner Family; PCP Physician Assistant
DX: J01.20 Acute ethmoidal sinusitis, unspecified (principal); H61.23 Impacted cerumen, bilateral
CPT/HCPCS: 87804; 87880; 99212; G0381

== ENCOUNTER 2024-06-22 12:07 | Emergency (ER) | payer BC, SELFPAY ==
[2024-06-22 12:08] VITALS: BP 141/92; PULSE 62; RESP 18; TEMP 36.6; O2SAT 99; BMI 25.4
--- NOTE | 2024-06-22 12:39 | ED_ITS ---
<Statement entered by Maria Elena Cho MD - 06/22/24 15:43> I was consulted by the AMAURY, and we discussed the complexity of the problems being addressed. I approved the treatment and management plan for this patient's care in the emergency department, thus performing a substantive portion of the medical decision making. Maria Elena Cho MD, KATE, FACEP Discharge Plan Disposition Patient Disposition: Home, Self-Care Condition: Good Prescriptions Prescriptions: No Action Stahist AD 25-60 mg tablet 1 tab PO .6-8 hours MDD 3 tabs PRN (Reason: sinus symptoms) Qty: 30 0RF Referrals Follow up/Referrals: Diann Mark PA [Primary Care Provider] - See instructions Shirley Galeano DPM [Staff Physician] - See instructions Activity Restrictions/Add. Instructions Additional Instructions/Restrictions: Continue taking Tylenol alternating with Motrin. Please continue wearing a hard soled shoe. I have given you Dr. Galeano the ornamental iron worker helper number if you continue to have problems you can call and make an appointment. If you have continued new or worsening signs or symptoms return to the ER as needed. Clinical Impressions Clinical Impression: Contusion of right foot including toes Qualifiers: Encounter type: initial encounter Qualified Code(s): S90.31XA - Contusion of right foot, initial encounter Print Language Print Language: Sri Lankan Discharge ED Provider: Maria Elena Cho General Adult HPI General Chief complaint: PAIN Stated complaint: ao 2/10, R foot injury Time Seen by Provider: 06/22/24 12:39 Mode of Arrival: Ambulatory Limitations: No Limitations Description of Symptoms (Recalled from ER Triage Doc. by RN): Pt states he dropped a steel break rotator to his right foot. Pt states toes are swollen and purple. Pain is 2-3 when sitting still, when walking it is a 9/10 History of Present Illness HPI narrative: Patient presents for evaluation of a right foot injury. Patient was changing a brake rotor and actually dropped the brake rotor accidentally on his distal right foot. Patient felt immediate pain but was able to continue to walk on it but it has continued to hurt more. He denies any numbness tingling loss of motor or sensory. Related Data Previous Rx's ?Medication ?Instructions ?Recorded chlorcyclizine-pseudoephedrine 25 1 tab PO .6-8 hours PRN sinus 06/07/24 mg-60 mg tablet (Stahist AD) symptoms #30 tabs Allergies Allergy/AdvReac Type Severity Reaction Status Date / Time Sulfa (Sulfonamide Allergy Mild Verified 12/12/22 09:50 Antibiotics) (SULFA (SULFONAMIDE ANTIBIOTICS)) [facility] Disclaimer: The information contained in this section may have been updated after the patient was seen, as this information can be updated by other users. Medical History (Updated 06/22/24 @ 13:13 by CHRISTINA Bennett) History of anemia Social History Smoking Status: Former smoker tobacco type: cigarettes alcohol intake: never counseling provided: none substance use type: denies use current occupational status: other Travel in the last 8 weeks: None household members: spouse Have you lived/traveled outside US in past 30 days?: Yes Contact w/someone who lives/traveled outside US past 30 days?: Yes Exposure to someone with infectious disease in past 14 days?: Yes Do you have a fever (greater than 100.4 F or 38 C)?: Yes Have you tested positive for COVID-19: Yes Exposed to someone with COVID-19 in past 14 days?: Yes Do you have a sore throat?: Yes Do you have a cough?: Yes Do you have any weakness?: Yes Do you have any diarrhea?: Yes Are you experiencing any unusual bleeding?: Yes Do you have any muscle aches/pain?: Yes Do you have any abdominal pain?: Yes Are you experiencing loss of taste or smell?: Yes Other Medical History Have you received the Flu Vaccine for this season: Yes Have you received the Pneumonia Vaccine: No ROS Obtained: Yes Systems reviewed as appropriate & no additional complaints except as documented Physical Exam General General appearance: alert and in no apparent distress Head Head exam: atraumatic and normal inspection Eye Eye exam: Present normal appearance, PERRL and EOMI ENT ENT exam: Present normal exam, normal oropharynx and mucous membranes moist Neck Neck exam: Present normal inspection, full ROM and trachea midline; Absent lymphadenopathy Chest Chest inspection: Present normal inspection and symmetric chest wall rise Respiratory Respiratory exam: Present normal lung sounds bilaterally and accessory muscle use Cardiovascular Cardiovascular exam: Present regular rate Abdominal Exam Abdominal exam: Present soft and normal bowel sounds; Absent tenderness, guarding or rebound Extremities Exam Extremities exam: Present normal inspection and full ROM Neurological Exam Neurological exam: Present alert and oriented X3 Psychiatric Psychiatric exam: Present normal affect and normal mood Skin Skin exam: Present warm, dry and normal color Lymphatic Lymphatic Findings: no adenopathy Medical Decision Making Medical Records Screening: Per USPSTF and CDC recommendations, given the prevalence of disease in [place], it is our hospital?s policy to screen for HIV and viral Hepatitis for all patients aged 18 and over and those with ongoing risk factors. Eron Inquiry Pt receiving controlled substance: No Vital Signs: 06/22/24 12:08 Temperature 97.9 F Temperature Source Oral Pulse Rate [Right] 62 Respiratory Rate 18 Blood Pressure [Right Arm] 141/92 H Blood Pressure Mean [Right Arm] 108 Blood Pressure Source [Right Arm] Automatic Cuff 02 Sat by Pulse Oximetry 99 Oxygen Delivery Method Room Air Orders (Tests/Meds): ORDERS Category Date Time Status Foot XR right 2 views [XR foot RT 2V] Stat Exams 06/22/24 12:41 Completed Medical Decision Narrative: In summary patient is a 64-year-old male who presents to the emergency departm ent for evaluation of right foot injury. Patient is hemodynamically stable upon arrival, febrile. Physical exam is remarkable for ecchymosis and abrasion to the 2nd through 4th toes. There is no palpable bony deformity but is very tender to palpation especially of the third toe. Patient is neurovascular intact distally. Nails appear to be intact.. Differential diagnosis includes crush injury versus fracture. Initial workup will be conducted with plain film x-rays. Initial interventions were considered however patient is already taken Tylenol and Motrin so we will defer for now. Initial workup reviewed by me and I do not see any acute bony fracture per my informal interpretation of his imaging prior to radiology read. Upon repeat evaluation patient reports no pain currently and is wearing a hard soled shoe. Given this patient is appropriate for discharge with recommendations to continue wearing hard soled shoe and referral to Dr. Galeano of podiatry should he have continuing or worsening signs or symptoms. Critical Care Critical Care Time Critical Care Time: No
--- NOTE | 2024-06-22 12:41 | XR_ITS ---
FINAL REPORT CLINICAL HISTORY: Dropped a break rotor on his foot COMPARISON: 03/31/2019 FINDINGS: RIGHT FOOT 3 views of the right foot were obtained. There is no acute fracture or dislocation. There are scattered degenerative changes. Visualized joint spaces are normally aligned. Soft tissues are unremarkable. IMPRESSION: No acute bony abnormality. Reviewed, Interpreted and Dictated by Celine Andrea MD Transcribed by Yanira Rascon Authenticated and . [facility]
--- NOTE | 2024-06-22 12:44 | PC.NURSE ---
1240 - Placed patient in room 13, no acute distress noted. Report given to JOEY Jaeger.
--- NOTE | 2024-06-22 12:47 | PC.NURSE ---
ROUNDED ON THE PT. THE PT VOICES THAT HE DOES NOT NEED ANYTHING AT THIS TIME. CALL LIGHT IS WITHIN REACH OF THE PT.
--- NOTE | 2024-06-22 12:56 | PC.NURSE ---
1245 - Patient to radiology
--- NOTE | 2024-06-22 12:57 | PC.NURSE ---
1255 - R/T department, in chair. No acute distress noted. Family with patient. Updated on POC.
[2024-06-22 13:34] VITALS: BP 122/79; PULSE 60; RESP 20; TEMP 36.6; O2SAT 99
== END 2024-06-22 13:35 | disposition home or self-care (01) ==
PROVIDERS: Emergency Provider Student in an Organized Health Care Education/Training Program; PCP Physician Assistant
DX: S90.31XA Contusion of right foot, initial encounter (principal); M79.671 Pain in right foot; Z87.891 Personal history of nicotine dependence; W20.8XXA Other cause of strike by thrown, projected or falling object, initial encounter; Y93.89 Activity, other specified
CPT/HCPCS: 73620; 99283

== ENCOUNTER 2024-07-09 11:09 | Outpatient (CLI) | payer BC, SELFPAY ==
[2024-07-09 11:56] LABS: Basophils % 0.5 % (0.1-2.0); Eosinophils # 0.1 K/mm3 (0.0-0.4); Eosinophils % 1.6 % (0.1-12.0); Hematocrit 42.7 % (42.0-52.0); Hemoglobin 13.9 g/dL (14.1-18.0); Lymphocytes # 1.6 K/mm3 (0.7-4.5); Lymphocytes % 26.6 % (10-50); Mean Corpuscular HGB Conc 32.6 g/dL (31.8-35.4); Mean Corpuscular Hemoglobin 28.5 pg (27.0-31.2); Mean Corpuscular Volume 87.5 fl (80-94); Mean Platelet Volume 9.7 fl (7.4-10.4); Monocytes # 0.6 K/mm3 (0.1-1.0); Neutrophils # 3.8 K/mm3 (1.8-7.8); Platelet Count 173 K/mm3 (142-424); Red Blood Count 4.88 M/mm3 (4.60-6.20); Red Cell Distribution Width 13.3 % (11.5-17.5); White Blood Count 6.1 K/mm3 (4.8-10.8)
[2024-07-09 12:45] LABS: Ferritin 62.3 ng/ml (17.9-464)
[2024-07-09 13:35] LABS: Iron 104 ug/dL (49-181)
== END 2024-07-09 23:59 | disposition home or self-care (01) ==
LOC: LAB 11:09
PROVIDERS: PCP Physician Assistant; Visit Provider Physician Assistant
DX: E61.1 Iron deficiency (principal)
CPT/HCPCS: 36415; 82728; 83540; 85025

== ENCOUNTER 2025-03-17 10:47 | Outpatient (CLI) | payer BC, SELFPAY ==
--- NOTE | 2025-03-17 10:52 | XR_ITS ---
FINAL REPORT CLINICAL HISTORY: RT ELBOW PAIN FINDINGS: AP, oblique, and lateral views of the right elbow were obtained. There is no prior exam for comparison. There is no acute fracture or dislocation. Joint space is preserved. There is no joint effusion or other soft tissue abnormality. IMPRESSION: No acute osseous abnormality of the right elbow. Reviewed, Interpreted and Dictated by Nadia Avila MD Transcribed by Yanira Rascon Authenticated and [facility]
--- OUTSIDE RECORDS SUMMARY | 2025-03-17 11:12 | XMS_ITS | Data Portability ---
Author Organization MD - Gladys ANTONIO Melgar [facility]OS[facility] Address [address] [facility] [place] [address] Assessment No assessment recorded. Plan of Treatment Reminders Order Date Submit Date Provider Last Modified By Organization Details Last Modified Time Details Appointments None record ed. Lab None record ed. Referral None record ed. Procedures None record ed. Surgeries None record ed. Imaging XR, foot, 2 view 018 07/26/19 18 [facility]iology [facility], [address] [place] [address], [address], 8 15:40:23 Medication Orders None record ed. Patient TargetsNo targets recorded. Patient Instructions Encounter Date Encounter Id Patient Instructions Last Modified By Organization Details Last Modified Time 07/25/2017 [id number] When You Want to Lose Weight: Care Instructions Not available 07/25/2017 15:12:21 metatarsalgia: care instructions Not available 07/25/2017 15:12:21 Reason for Referral None Reported. Results Created Date Observation Date Name Description Value Unit Range Abnormal Flag Note LastModifiedBy Organization Detail LastModifiedTime 07/26/19 18 07/25/2017 XR, foot, [address] [address] Patien t Name: JOSE vital : 05/16[birth year]18 63 Patizayda t 45 Orderi ng Provid er: DEMETRICE RUEDA EXAM DATE: 2017 EXAM: XR LT FOOT, AP/LAT HISTOR Y: Left foot pain COMPAR SANDRA: None. FINDIN GS: Normal alignm ent is presen t. There is no fractu re or disloc ation. There is mild to modera te DJD of the first MTP joint. There is a spur from the Achill es insert ion surfac e of the calcan eus IMPRES JAQUELINE: 1. Mild to modera te degene rative change s of the calcan eus and great toe Interp reted By: Lew Dietz MD Electr onical ly Signed By: Lew Dietz MD on 018 3:35 PM [email or web address] [facility] Radiology [facility] [address] [place], [address], 07/26/2017 10:42:53 Result Notes Documentation Provider Name and Address Organization Details Recorded Time Xr, Foot, 2 View : [address] [address] Patient Name: JOSE JAMIL Patient : 1960 Patient Ordering Provider: DEMETRICE RUEDA EXAM DATE: 07/25/2017 EXAM: XR LT FOOT, AP/LAT HISTORY: Left foot pain COMPARISON: None. FINDINGS: Normal alignment is present. There is no fracture or dislocation. There is mild to moderate DJD of the first MTP joint. There is a spur from the Achilles insertion surface of the calcaneus IMPRESSION: 1. Mild to moderate degenerative changes of the calcaneus and great toe Interpreted By: Lew iDetz MD E DEMETRICE RUEDA MD [address] [place] [address], [address], [facility] 07/26/2017 10:42:53 Medical Equipment None Reported. Allergies Allergen ID Allergen Name Allergen Category Reaction Reaction Severity Criticality Documentation Date Start Date Code Code System Note Provider Name and Address Organization Details Recorded Time 918034 Substance with sulfonami de structure and antibacte rial mechanism of action (substanc e) medicatio n Not available Not available Not available 07/25/2017 47787 8003 SNOMED Karen Esha lina [facility] 8 14:45:57 Medications Name Sig Start Date Stop Date Status Note LastModified by Organization Details LastModified Time MoviPrep 100 gram-7.5 gram-2.691 gram oral powder packet 2017 completed Not Available Not Available Not Available turmeric (bulk) active Not Available Not Available Not Available Natural Fiber Supplemnt(a sprt) active Not Available Not Available Not Available Multi Vitamin active Not Available Not Available Not Available Fluarix Quad 8664-0337 (PF) 60 mcg (15 mcg x 4)/0.5 mL IM syringe 2017 completed Not Available Not Available Not Available Vitals Date Recorded Body height Body mass index (BMI) Body weight Respiratory rate Heart rate Systolic And Diastolic Provider Name and Address Organization Details Last Updated DateTime 8 177.8 cm 26 kg/m2 15025.2 2 g 18 /min 78 /min 119/84 mm[Hg] Karen Balbuena [facility] 8 14:48:59 Social History Question Answer Notes LastModified by Organizat ion Details LastModified Time Tobacco Smoking Status Former Smoker Karen Balbuena [facility] 07/25/2017 14:47:18 What Was The Date Of Your Most Recent Tobacco Screening? 07/25/2017 Information n ot available 06/30/2019 Sex: Unknown Functional Status None recorded. Mental Status None recorded. Family History Relationship Description Onset Age of this Age Resolved Age Notes LastModified by Organization Details LastModified Time Father No current problems or disability [email or web address] Not available 07/25 14:47:10 Mother No current problems or disability [email or web address] Not available 07/25 14:47:10 Medical History Condition Response Diabetes N Bleeding Disorder N Arthritis N Emphysema N Acid Reflux (GERD) N Heart Disease N Rheumatoid Arthritis N Hypertension N COPD N Asthma N Past Encounters Encounter ID Performer Location Encounter Start Date Encounter Closed Date Diagnosis/Indication Diagnosis SNOMED-CT Code Diagnosis ICD10 Code Diagnosis IMO Codes Diagnosis Note [id number] KATIE RUEDA MD [facility] [address] [place] [address] 07/25/2017 12:54:09 07/25/2017 15:33:41 Metatarsalgia 24402400 M77.42 Secondary to severe degenerati ve type arthritis, with Hallux Rigidus. No features of gout noted. No features of dactylitis noted ot suggest Psoriatic arthritis or spondyloar thropathy. At this point, I do not see need for further labs. However, I have obtained the xrays of left foot which did confirm the severe Degenerati ve process as expected. At this point, he is minimally symptomati c and can carry on his usual activities . I would suggest to maintain good orthotics, with inserts. No indication s for the IA steroid injections . In case of any worsening of symptoms like pains or swelling, an evaluation with orthopedic s for MTP Arthrodesi s would be the way to go. He is comfortabl e with the discussion . No fu arranged at this time. Health Concerns Section Related Observation LastModified by Organization Detai ls LastModified Time None Recorded Concern Status LastModified by Organization Details LastModified Time None Recorded Advance Directives Directive None Recorded Payers Insurance Date Sequence Insurance Name Policy Number Policy Pond Covered Member ID Pond Member ID Guarantor Name 04/06/2020 1 [place] [id number] Jose Jamil [id number] Jose Iniguezons Notes Date Note Type Note Provider Name and Address Organization Details Recorded Time 07/25/2017 text/html ROS as noted in the HPI on request , Humberto Hernandez and law. seen for evaluation of pains, swelling in the left big toe along with burning sensations. This happens , off and on and can last for 24 hours or more. no hand symptoms. the left bog toe pains are going on for past 6 months. not on any skilled nursing prescription pills or medications. his dad had arthritis. no h/o psoriasis. no known h/o IBD or uveitis. H/O remote injury left leg at age 8 with some leg length discrepancy. KATIE RUEDA MD [address] [place], [address], [facility] 07/25/2017 16:57:01
--- OUTSIDE RECORDS SUMMARY | 2025-03-17 11:12 | XMS_ITS | Clinical Summary ---
Author Organization [facility] Address [address] [place], [place] [address] Phone [email or web address] Care Team Providers Care Sanipractic Physician Name Role Phone Unavailable Primary Care Provider Unavailabl e Allergies Active Allergy Reactions Criticality Noted Date Comments Sulfa Antibiotics 12/10/2017 Medications clarithromycin (BIAXIN) 500 MG tablet 11/15/2017 Active fluticasone (FLONASE) 50 MCG/ACT nasal spray 11/15/2017 Active wqjpmiwk-fbrtqwcsl-h ydrocortisone (CORTISPORIN) 3.5-15853-7 otic suspension 11/29/2017 Active HAVRIX 1440 EL U/ML injection 12/06/2017 Active SHINGRIX 50 MCG reconstituted suspension 12/06/2017 Active Active Problems Problem Noted Date Diagnosed Date Hypermetropia 05/25/2008 Overview (10/09/2017): Presbyopia 05/25/2008 Overview (10/09/2017): Regular astigmatism 05/25/2008 Overview (10/09/2017): Resolved Problems Problem Noted Date Diagnosed Date Resolved Date Acute sinusitis 04/21/2011 12/10/2017 Overview (10/09/2017): Other specified disorder of cornea 08/23/2008 12/10/2017 Overview (10/09/2017): Health examination of defined subpopulation 06/04/2008 12/10/2017 Overview (10/09/2017): Other examination of ears and hearing 05/21/2007 12/10/2017 Overview (10/09/2017): Immunizations Immunization Administration Dates Next Due Hepatitis A (HAVRIX-ADULT VAQTA-ADULT) (CVX-52) 12/06/2017 Tdap (ADACEL BOOSTRIX) (CVX-115) 12/10/2013 Zoster (Shingrix) (TWO VIALS -MUST MIX) recombinant (CVX-187) 12/06/2017 Family History Medical History Relation Name Comments Lung cancer Father Breast cancer Mother Relation Name Status Comments Father Mother Social History Tobacco Use Types Packs/Day Years Used Date Smoking Tobacco: Former Smokeless Tobacco: Never Intimate Partner Violence Answer Date R ecorded Insults You Not on file 08/24/2020 Threatens You Not on file 08/24/2020 Screams at You Not on file 08/24/2020 Physically Hurt Not on file 08/24/2020 Intimate Partner Violence Score Not on file 08/24/2020 Stress Answer Date Recorded Stress in your Life Not on file 03/16/2024 Dealing with Stress 3 03/16/2024 Sex and Gender Information Value Date Recorded Sex Assigned at Not on file Legal Sex Male 9:37 AM CDT Gender Identity Not on file Sexual Orientation Not on file Last Filed Vital Signs Vital Sign Reading Time Taken Comments Blood Pressure 151/95 07/01/2018 7:38 AM EST Pulse 99 05/24/2020 8:58 AM EST Temperature 36.7 C (98 F) 05/31/2020 9:22 AM EST Respiratory Rate - - Oxygen Saturation - - Inhaled Oxygen Concentration - - Weight 86.1 kg (189 lb 14.4 oz) 07/01/2018 7:38 AM EST Height 177.8 cm (5' 10 ) 07/01/2018 7:38 AM EST Body Mass Index 27.25 07/01/2018 7:38 AM EST Plan of Treatment Health Maintenance Due Date Last Done Comments CT Colonography 1960 Colonoscopy 1960 Colorectal Cancer Screening Combo 1960 DNA Cologuard 1960 Dental Cleaning/Exam 1960 FIT or FOBT Test 1960 HIV Screening 1960 Hepatitis C Screening 1960 Sigmoidoscopy 1960 Hep B Infection Screening - Triple Screen 1979 Pneumococcal: 50+ Years (1 o f 1 - PCV) 2011 Zoster Immunization (2 of 2) 01/31/2018 12/06/2017 Annual Preventive Exam 12/10/2018 12/10/2017 Tetanus Diphtheria and Pertu ssis Immunization (2 - Td or Tdap) 12/11/2023 12/10/2013 Covid-19 Immunization (1 - 2 025-26 season) 2025 Influenza Immunization (#1) 2025 Hepatitis A Immunization Aged Out 12/06/2017 No longer eligible based on patient's age to complete this topic HIB Immunization Aged Out No longer e ligible based on patient's age to complete this topic HPV Immunization Aged Out No longer e ligible based on patient's age to complete this topic Hepatitis B Immunization Aged Out No longer eligible based on patient's age to complete this topic Polio Immunization Aged Out No longer eligible based on patient's age to complete this topic Insurance ANTHEM IN COPAY 20 ANTHEM IN COPAY 5
--- OUTSIDE RECORDS SUMMARY | 2025-03-17 11:12 | XMS_ITS | Data Portability ---
Author Organization [facility] Address [address] [place] [address] Care Team Providers Care Podiatry Teacher Name Role Phone HILARIO SERRA Referring Provider Assessment No assessment recorded. Plan of Treatment Reminders Order Date Submit Date Provider Last Modified By Organization Details Last Modified Time Details Appointments None recorded. Lab urinalysis, dipstick [address], [address], 3 21:46:22 Referral None recorded. Procedures bladder scan (PROC) [address], [address] [place] [address], [address], 3 21:46:22 Surgeries None recorded. Imaging None recorded. Medication Orders oxybutynin chloride ER 10 mg tablet,exte nded release 24 hr 2022 023 [facility], [address], [address], 3 13:04:06 Patient TargetsNo targets recorded. Patient InstructionsNo instructions recorded. Reason for Referral None Reported. Results Created Date Observation Date Name Description Value Unit Range Abnormal Flag Note LastModifiedBy Organization Detail LastModifiedTime 09/29/19 23 09/28/2022 bladd er scan (PROC ) Calculated Residual Urine: 0ml Not Available [facility] [address], [address], 09/28/2022 10:37:07 09/29/19 23 09/28/2022 urina lysis , dipst ick Leukocytes (reference range) negati ve Not Available [address], [address], 09/28/2022 10:37:08 09/29/19 23 09/28/2022 urina lysis , dipst ick Nitrite (reference range:) negati ve Not Available [address], [address], 09/28/2022 10:37:08 09/29/19 23 09/28/2022 urina lysis , dipst ick Urobilinogen (reference range) 0.2 Not Available [address], [address], 09/28/2022 10:37:08 09/29/19 23 09/28/2022 urina lysis , dipst ick Protein (reference range) negati ve Not Available [address], [address], 09/28/2022 10:37:08 09/29/19 23 09/28/2022 urina lysis , dipst ick pH (reference range 5-8.5) 7.0 Not Available [address], [address], 09/28/2022 10:37:08 09/29/19 23 09/28/2022 urina lysis , dipst ick Blood (reference range:) negati ve Not Available [address], [address], 09/28/2022 10:37:08 09/29/19 23 09/28/2022 urina lysis , dipst ick Specific Shohola (reference range) 1.010 Not Available [facility] [address], [address], 09/28/2022 10:37:08 09/29/19 23 09/28/2022 urina lysis , dipst ick Ketone (reference range) negati ve Not Available [address], [address], 09/28/2022 10:37:08 09/29/19 23 09/28/2022 urina lysis , dipst ick Bilirubin (reference range) negati ve Not Available [address], [address], 09/28/2022 10:37:08 09/29/19 23 09/28/2022 urina lysis , dipst ick Glucose (reference range) negati ve Not Available [address], [address], 09/28/2022 10:37:08 Result Notes None recorded. Medical Equipment None Reported. Allergies Allergen ID Allergen Name Allergen Category Reaction Reaction Severity Criticality Documentation Date Start Date Code Code System Note Provider Name and Address Organization Details Recorded Time 83509 sulfabenz amide Not available Not available Not available Not available 09/28/2022 12198 RxNorm Yajaira Solorzano [facility] & [place] 3 09:54:10 Medications Name Sig Start Date Stop Date Status Note LastModified by Organization Details LastModified Time oxybutynin chloride ER 10 mg tablet,exten ded release 24 hr TAKE 1 TABLET BY MOUTH ONCE DAILY active Not Available Not Available No t Available hydrocodone 7.5 mg-acetamino phen 325 mg tablet active Not Available Not Available Not Available cephalexin 500 mg capsule TAKE 1 CAPSULE BY MOUTH THREE TIMES DAILY FOR 7 DAYS active Not Available Not Available N ot Available methylpredni solone 4 mg tablets in a dose pack TAKE BY MOUTH DIRECTED ON INSIDE OF PACKAGE active Not Available Not Available No t Available ferrous sulfate 325 mg (65 mg iron) tablet,delay ed release TAKE 1 TABLET BY MOUTH ONCE DAILY active Not Available Not Available No t Available cefdinir 300 mg capsule TAKE 1 CAPSULE BY MOUTH EVERY 12 HOURS FOR 7 DAYS active Not Available Not Available N ot Available Clenpiq 10 mg-3.5 gram-12 gram/160 mL oral solution TAKE DIRECTED FOR YOUR COLONOSCOPY active Not Available Not Available Not Available Vitals Date Recorded Body height Body mass index (BMI) Body weight Provider Name and Address Organization Details Last Updated DateTime 09/28/2022 180.34 cm 24.4 kg/m2 94965.66 g Yajaira Solorzano [place] - [facility] - [place] & [place] 09/28/2022 09:53:54 Social History None recorded. Functional Status None recorded. Mental Status None recorded. Family History Relationship Description Onset Age of this Age Resolved Age Notes LastModified by Organization Details LastModified Time Mother Malignant neoplastic disease [email or web address] Not available 09/28 09:54:34 Father Malignant neoplastic disease [email or web address] Not available 09/28 09:54:34 Medical History No medical history recorded. Past Encounters Encounter ID Performer Location Encounter Start Date Encounter Closed Date Diagnosis/Indication Diagnosis SNOMED-CT Code Diagnosis ICD10 Code Diagnosis IMO Codes Diagnosis Note [id number] Jeremy Wise Jr, MD [facility] [address] [address] 09/28/2022 09:40:01 09/28/2022 10:45:44 Overactive urinary bladder 857507168 N32.81 Patient with acute onset of urinary urgency associated with occasional leak 7 months ago. He did improve with Motegrity but is no longer on it. He also states improvemen t with decreasing his caffeine use. We discussed that he is emptying his bladder out as well as he can. We discussed his recent PSA values very normal and there is no concern for prostate cancer. We discussed that overactive bladder is very common as we age. Caffeine can exacerbate the symptoms. Recommende d oxybutynin and caffeine cessation. We will see him back in 6 weeks in follow-up. Health Concerns Section Related Observation LastModified by Organization Detai ls LastModified Time None Recorded Concern Status LastModified by Organization Details LastModified Time None Recorded Advance Directives Directive None Recorded Payers Insurance Date Sequence Insurance Name Policy Number Policy Pond Covered Member ID Pond Member ID Guarantor Name 11/06/2022 1 [employer] [id number] Hugo Molina [id number] Steph Molina Notes Date Note Type Note Provider Name and Address Organization Details Recorded Time 09/28/2022 text/html Patient is a 62-year-old white male referred for urinary urgency and incontinence. He states that 7 months ago this began abruptly. He has been treated by his primary care physician with Motegrity. He states that Motegrity improve the urgency and leakage but he only took it for about 3 months. Patient was also educated about caffeine in its possible cauterization of symptoms. He states he is decreased his caffeine significantly with improvement in his urinary symptoms. He still drinks couple of cups of coffee per day. Bladder scan today is 0. His urinalysis is unremarkable. Recent PSA is normal at 0.73. Jeremy Wise Jr, MD [address] [place] [address], [address], [place], [address], [facility] - [place] - [place] & [place] 09/28/2022 13:04:50
== END 2025-03-17 23:59 | disposition home or self-care (01) ==
LOC: RAD 10:48
PROVIDERS: PCP Physician Assistant; Visit Provider Physician Assistant
DX: M25.521 Pain in right elbow (principal)
CPT/HCPCS: 73080

== ENCOUNTER 2025-04-02 06:49 | Outpatient (CLI) | payer BC, SELFPAY ==
--- OUTSIDE RECORDS SUMMARY | 2025-04-02 06:53 | XMS_ITS | Clinical Summary ---
Author Organization [facility] Address [address] [place], [place] [address] Phone [email or web address] Care Team Providers Care Paving Bed Maker Name Role Phone Unavailable Primary Care Provider Unavailabl e Allergies Active Allergy Reactions Criticality Noted Date Comments Sulfa Antibiotics 12/10/2017 Medications clarithromycin (BIAXIN) 500 MG tablet 11/15/2017 Active fluticasone (FLONASE) 50 MCG/ACT nasal spray 11/15/2017 Active pmtmvlcn-elvqfairc-z ydrocortisone (CORTISPORIN) 3.5-73323-8 otic suspension 11/29/2017 Active HAVRIX 1440 EL [...]
--- OUTSIDE RECORDS SUMMARY | 2025-04-02 06:53 | XMS_ITS | Data Portability ---
Author Organization [place] - [facility] ANTONIO Melgar [facility] CLOS[facility] Address [address] [facility] [address] [place] [address] Assessment No assessment recorded. Plan of Treatment Reminders Order Date Submit Date Provider Last Modified By Organization Details Last Modified Time Details Appointments None record ed. Lab None record ed. Referral None record ed. Procedures None record ed. Surgeries None record ed. Imaging XR, foot, 2 view 018 07/26/19 18 [facility], [address] [place] [address], [address], 8 15:40:23 Medication Orders None record ed. Patient TargetsNo targets recorded. Patient Instructions Encounter Date Encounter Id Patient Instructions Last Modified By Organization Details Last Modified Time 07/25/2017 [id number] When You Want to Lose Weight: Care Instructions Not available 07/25/2017 15:12:21 metatarsalgia: care instructions Not available 07/25/2017 15:12:21 Reason for Referral None Reported. Results Created Date Observation Date Name Description Value Unit Range Abnormal Flag Note LastModifiedBy Organization Detail LastModifiedTime 07/26/19 18 07/25/2017 XR, foot, [address] [address] Patien t Name: JOSE vital : 05/16/18 [...] Dietz MD on 018 3:35 PM [email or web address] [facility] Radiology [facility] [address] [place], [address], 07/26/2017 10:42:53 Result Notes Documentation Provider Name and Address Organization Details Recorded Time Xr, Foot, 2 View : [address] [address] Patient Name: JOSE JAMIL Patient : 1960 [...] calcaneus and great toe Interpreted By: Lew Dietz MD E DEMETRICE RUEDA MD [address] [place] [address], [address], [facility] 07/26/2017 10:42:53 Medical Equipment None Reported. Allergies Allergen ID Allergen Name Allergen Category Reaction Reaction Severity Criticality Documentation Date Start Date Code Code System Note Provider Name and Address Organization Details Recorded Time 713550 Substance with sulfonami de structure and antibacte rial mechanism of action (substanc e) medicatio n Not available Not available Not available 07/25/2017 97791 8003 SNOMED Karen Esha lina [facility] 8 14:45:57 Medications Name Sig [...] Available Not Available Not Available Fluarix Quad 7713-3572 (PF) 60 mcg (15 mcg x 4)/0.5 mL IM syringe 2017 completed Not Available Not Available Not Available Vitals Date Recorded Body height Body mass index (BMI) Body weight Respiratory rate Heart rate Systolic And Diastolic Provider Name and Address Organization Details Last Updated DateTime 8 177.8 cm 26 kg/m2 49805.2 2 g 18 /min 78 /min 119/84 mm[Hg] Karen Balbuena [facility] 8 14:48:59 Social History Question Answer Notes LastModified by Organizat ion Details LastModified Time Tobacco Smoking Status Former Smoker Karen Balbuena [facility] 07/25/2017 14:47:18 What Was The Date Of Your Most Recent Tobacco Screening? 07/25/2017 Information n ot available 06/30/2019 Sex: Unknown Functional Status None recorded. Mental Status None recorded. Family History Relationship Description Onset Age of this Age Resolved Age Notes LastModified by Organization Details LastModified Time Father No current problems or disability [email or web address] Not available 07/25 14:47:10 Mother No current problems or disability [email or web address] Not available 07/25 14:47:10 Medical History Condition Response Emphysema N COPD N Arthritis N Acid Reflux (GERD) N Rheumatoid Arthritis N Bleeding Disorder N Asthma N Diabetes N Heart Disease N Hypertension N Past Encounters Encounter ID Performer Location Encounter Start Date Encounter Closed Date Diagnosis/Indication Diagnosis SNOMED-CT Code Diagnosis ICD10 Code Diagnosis IMO Codes Diagnosis Note [id number] KATIE RUEDA MD RHEUMATOL OGY [address] [place] [address] 07/25/2017 12:54:09 07/25/2017 15:33:41 Metatarsalgia 69636809 M77.42 Secondary to severe degenerati ve type [...] ID Guarantor Name 04/06/2020 1 [employer] [id number] Jose Jamil [id number] Jose Iniguezons Notes Date Note Type [...] for past 6 months. not on any prison prescription pills or medications. his dad had arthritis. no h/o psoriasis. no known h/o IBD or uveitis. H/O remote injury left leg at age 8 with some leg length discrepancy. KATIE RUEDA MD [address] [place], [address], [facility] 07/25/2017 16:57:01
--- NOTE | 2025-04-02 06:59 | MR_ITS ---
FINAL REPORT CLINICAL HISTORY: RT ELBOW PAIN. heard a pop in elbow a month ago. pain radiates down arm to wrist. lateral and posterior elbow pain. COMPARISON: None FINDINGS: Multiplanar MR imaging of the right elbow was performed without contrast. The bony structures are intact without evidence of fracture, bone bruise or marrow edema. There is no evidence of osteochondral lesion. The ligaments appear intact. There is abnormal signal involving the insertion of the common extensor tendon best seen on image #10 of series 6. There is overlying edema present as well, and the appearance is consistent with a high-grade partial insertional tear of the common extensor tendon. The common flexor tendon is intact. The biceps tendon is intact. The distal triceps tendon is intact. The brachialis tendon is intact. The musculature has an unremarkable appearance. No soft tissue mass or cyst is identified. No focal abnormality is identified of the ulnar nerve. IMPRESSION: High-grade partial insertional tear of the common extensor tendon as described. Reviewed, Interpreted and Dictated by Say Carr MD Transcribed by Shae Guerra Authenticated and [facility]
== END 2025-04-02 23:59 | disposition home or self-care (01) ==
LOC: RAD 06:51
PROVIDERS: PCP Physician Assistant; Visit Provider Physician Assistant
DX: S56.511A Strain of other extensor muscle, fascia and tendon at forearm level, right arm, initial encounter (principal)
CPT/HCPCS: 73221

== ENCOUNTER 2025-04-07 13:38 | Outpatient (RCR) | payer BC, SELFPAY | END 2025-04-07 23:59 | disposition home or self-care (01) | LOC: OT 13:38 | PROVIDERS: PCP Physician Assistant; Visit Provider Physician Assistant | DX: M67.823 Other specified disorders of tendon, right elbow (principal) | CPT/HCPCS: 97165 ==

== ENCOUNTER 2025-05-11 10:00 | Outpatient (RCR) | payer BC, SELFPAY ==
--- NOTE | 2025-05-03 09:26 | [facility].RHREAS ---
Rehab Reassessment Rehab OP Re-assessment Start: 04/12/25 08:54 Freq: Status: Active Protocol: Document 05/03/25 08:43 CUONG (Rec: 05/03/25 09:25 CUONG [id number]) E-signed By Nita Hurd, OT QuickDASH Activities Please rate your ability to do the following activities in the last week by selecting the number below the appropriate response. 1. Open a tight or Mild difficulty new jar. 2. 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 g., wash acevedo, floors). 3. Carry a shopping No difficulty bag or briefcase. 4. Wash your back. No difficulty 5. Use a knife to Mild difficulty cut food. 6. Recreational Moderate difficulty activities in which you take some force or impact through your arm, shoulder, or hand (e.g., golf, hammering, tennis, etc.). 7. During the past Moderately week, to what extent has your arm, shoulder or hand problem interfered with your normal social activities with family, friends , neighbors or groups? 8. During the past Moderately limited week, were you limited in your work or other regular daily activites as a result of your arm, shoulder or hand problem? 9. Arm, shoulder or Mild hand pain. 10. Tingling (pins Mild and needles) in your arm, shoulder or hand. 11. During the past Mild difficulty week, how much difficulty have you had sleeping because of the pain in your arm, shoulder or hand? Quick DASH 22 Rehab Re-assessment Subjective Subjective You can feel it alot more when it is extended like that. Objective Objective Notes Pt is a 64 yr old male being seen for OP OT services and interventions to address functional limitations in occupational performance for a high-grade partial insertional tear of the right common extensor tendon and associated right elbow extensor strain. Each session, pt has been engaged in therapeutic exercise, thermal modalities, and PROM in order to address functional limitations and improve optimal occupational performance. Assessment Progress Assessment Progressing as Expected Assessment Notes Pt is consistent with attending therapy sessions. Pt is pleasant and very responsible in HEP and exercises while at therapy. Pt is progressing well in therapy. Pt reports that they were supposed to go back to Dr 4 weeks from injury date, however they have not had an appointment set up. Measurements 05/03/25 QuickDash Activities: 22 Pain at worst: 4/10 R elbow flexion: 140 degrees R elbow extension: 0 degrees R computer application developer strength: avg 68 lbs MMT 4-/5 STG MET 05/03/25 1. Patient will demonstrate increased right elbow extension ROM by at least 10? to support improved reach and functional use of the R UE during daily tasks. 3. Patient will increase right-hand computer application developer strength by at least 5?10 lbs to improve ability to hold and carry household objects with reduced compensatory patterns. 4. Patient will demonstrate independence with a prescribed home exercise program (HEP) targeting protected ROM, gentle strengthening, and pain management strategies. LTG Met 05/03/25 1. Patient will achieve functional right elbow ROM within 5? of the uninvolved side to safely complete overhead reaching, lifting, and ADL/IADL tasks. OT Patient Goals OT Short Term 2. Patient will report pain no greater than 3/10 during Patient Goals light functional activities involving the right elbow and forearm. OT Snf Patient 1. Patient will achieve functional right elbow ROM Goals within 5? of the uninvolved side to safely complete overhead reaching, lifting, and ADL/IADL tasks. 2. Patient will increase right-hand computer application developer strength to within 80?90% of the uninvolved hand to support functional grasp and lifting tasks. 3. Patient will perform household lifting and carrying tasks (e.g., small appliances, grocery bags) with proper body mechanics and pain =2/10. 4. Patient will demonstrate improved overall R UE strength to allow return to prior level of function ( PLOF) including safe handling of kitchen equipment and typical daily activities. Plan Plan continue OT POC at this time OT POC will include each session having pt engaged in therapeutic exercise, thermal modalities, and PROM to improve functional limitations in occupational performance and address above goals to reach PLOF in ADLs and IADLs. Frequency of Therapy 2x/wk Duration of Therapy 4 more wks Therapeutic Exercise Yes Including Home Exercise Program Manual Therapy Yes Techniques Neuromuscular Re- Yes education Therapeutic Yes Activities to Return to Previous Functional/Work Level ADL/Self Care Yes Education Thermal Modalities Yes Electrical Yes Stimulation Ultrasound/ Yes Phonophoresis Iontophoresis Yes Parrafin Yes Orthotics/Bracing/ Yes Splinting Group Therapy for Yes Medicare Eval/Re-Eval Yes Time and Billing Charge for OT No reassessment? PHYSICIAN CERTIFICATION: I certify the specified therapy services for Steph S Molina are required, authorized, and reviewed every 30 days.
== END 2025-05-11 23:59 | disposition home or self-care (01) ==
LOC: OT 10:00
PROVIDERS: PCP Physician Assistant; Visit Provider Physician Assistant
DX: S56.511A Strain of other extensor muscle, fascia and tendon at forearm level, right arm, initial encounter (principal)
CPT/HCPCS: 97014; 97032; 97035; 97110; 97140; G0283